=== PATIENT | female | born 1990 | race Caucasian/White ===

== ENCOUNTER 2020-01-13 17:09 | Inpatient (IN) | payer BC, SELFPAY ==
--- NOTE | ~2020-01-13 | XR_ITS ---
EXAMINATION: XR chest 2V DATE: 01/16/2020 11:17 INDICATION: Shortness of breath. TECHNIQUE: Frontal and lateral views of the chest were obtained. COMPARISON: None. FINDINGS: There are airspace opacities in the perihilar regions and lower lung zones. There is a diff use interstitial pattern with a lower lung predominance with sparing of left upper lung zone. There a re small pleural effusions. No pneumothorax. The heart size is obscured. IMPRESSION: 1. Bilateral lung disease with a perihilar and lower lung predominance, consistent with pulmonary marco antonio ma versus pneumonia. 2. Small pleural effusions. Reviewed, dictated and finalized at location A. IMPRESSION: 1. Bilateral lung disease with a perihilar and lower lung predominance, consist ent with pulmonary edema versus pneumonia. 2. Small pleural effusions.
--- NOTE | ~2020-01-13 | US_ITS ---
EXAMINATION: US venous doppler [facility] DATE: 01/16/2020 14:08 INDICATION: Shortness of breath TECHNIQUE: Montes scale images without and with compression and Doppler images of the bilateral lower e xtremity veins were obtained. COMPARISON: None. FINDINGS: The right common femoral vein, profunda femoral vein, femoral vein, popliteal vein, peroneal trunk, p osterior tibial veins, and greater saphenous vein are patent. The left common femoral vein, profunda femoral vein, femoral vein, popliteal vein, peroneal trunk, po sterior tibial veins, and greater saphenous vein are patent. IMPRESSION: 1. Patent bilateral lower extremity veins. No evidence of deep venous thrombosis. Reviewed, dictated and finalized at location A. IMPRESSION: 1. Patent bilateral lower extremity veins. No evidence of deep venous thrombosi s.
--- NOTE | ~2020-01-13 | US_ITS ---
US guidance surgery 01/14/2020 13:41 Indication: Ultrasound guidance during intraoperative procedure Procedure: High-resolution transabdominal ultrasound of the pelvis performed intraoperatively during D&C procedure performed by Dr. Peters. Comparison: No prior studies for comparison. Findings: Uterus is heterogeneous. Endometrium not well delineated during the study. Impression: 1: Ultrasound guidance for D&C procedure performed intraoperatively. Please refer to procedural repor t for details of the examination. Reviewed, dictated and finalized at location A. Impression: 1: Ultrasound guidance for D&C procedure performed intraoperatively. Please ref er to procedural report for details of the examination.
--- NOTE | ~2020-01-13 | XR_ITS ---
XR chest 2V 01/17/2020 08:02 Indication: Redness of breath Procedure: 2 view chest Comparison: 01/16/2020 Findings: Persistent bilateral airspace disease most prominent in the perihilar location and lung bas es. Small pleural effusions. Stable cardiomediastinal silhouette. No pneumothorax. Impression: 1: No significant change to bilateral airspace disease which may represent edema versus pneumonia. 2: Small pleural effusions. Reviewed, dictated and finalized at location A. Impression: 1: No significant change to bilateral airspace disease which may represent lisa a versus pneumonia. 2: Small pleural effusions.
--- NOTE | ~2020-01-13 | CT_ITS ---
EXAMINATION: CTA chest PE protocol DATE: 01/17/2020 11:03 CDT INDICATION: Shortness of breath with hypoxia TECHNIQUE: Computed tomographic angiography (CTA) of the chest was performed with 100 mL Omnipaque-35 0 intravenous contrast. The dose-length product was 402.39 mGy-cm. Maximum intensity projection 3D-re constructions of the aorta and other arteries were constructed by the technologist on a separate work station. Automated exposure control and iterative reconstruction technique were employed. COMPARISON: X-ray dated 01/17/2020 FINDINGS: The study is technically adequate without evidence for pulmonary embolism. There is mediast inal and right hilar lymphadenopathy, likely reactive. Small-moderate bilateral pleural effusions. Ca rdiomegaly. There is bilateral perihilar and lower lobe airspace disease with more focal consolidatio n in the lower lobes. Patchy upper lobe groundglass opacities. No endobronchial lesions. The upper ab domen is unremarkable. IMPRESSION: 1. Patchy bilateral airspace disease more focal in the perihilar and lower lobe locations. This may r epresent a combination of pneumonia, edema and/or atelectasis. 2: Small-moderate bilateral pleural effusions. 3: No evidence for pulmonary embolism. 4: Cardiomegaly. Reviewed, dictated and finalized at location A. IMPRESSION: 1. Patchy bilateral airspace disease more focal in the perihilar and lower lobe locations. This may represent a combination of pneumonia, edema and/or atelect asis. 2: Small-moderate bilateral pleural effusions. 3: No evidence for pulmonary embolism. 4: Cardiomegaly.
--- NOTE | ~2020-01-13 | US_ITS ---
EXAMINATION: US pelvic complete w TV DATE: 01/13/2020 18:28 INDICATION: Vaginal bleeding. TECHNIQUE: Multiple transabdominal and endovaginal sonographic images of the pelvis were obtained. COMPARISON: None. FINDINGS: The uterus measures 9.0 x 4.2 x 5.2 cm. The endometrial complex measures 7 cm 2 mm throughout much of the uterus. There is however mild relative thickening of the endometrial complex at the fundus where it measures up to 8 mm as well as at the lower uterine segment with measures up to 5 mm. Increased c olor Doppler signal throughout the uterus surrounding but not within the endometrial complex. A few s ubcentimeter anechoic nabothian cysts at the cervix. The right ovary measures 3.8 x 2.2 x 2.2 cm. The left ovary measures 2.2 x 1.8 x 1.5 cm. Bilateral anechoic ovarian cysts/follicles measuring up to 2 .4 cm on the right and 1.5 cm on the left. There is normal vascular flow in the ovaries. There is no free fluid in the pelvis. IMPRESSION: 1. Venous of mild relative thickening of the endometrial complex suspicious for retained products of conception with increased vascular flow on color Doppler throughout the surrounding uterus which coul d be seen with endometritis. Reviewed, dictated and finalized at location A. IMPRESSION: 1. Venous of mild relative thickening of the endometrial complex suspicious for retained products of conception with increased vascular flow on color Doppler throughout the surrounding uterus which could be seen with endometritis.
[2020-01-13 17:15] VITALS: BP 129/59; PULSE 123; RESP 26; TEMP 39.5; O2SAT 100
[2020-01-13] MEDS: SODIUM CHLORIDE 0.9% IV 1,000 ML 999 ML IV CONT ×3 (17:29→19:46)
[2020-01-13] MEDS: ONDANSETRON INJ 4 MG/2 ML VIAL IV PUSH (17:30)
[2020-01-13] MEDS: FAMOTIDINE 20 MG/2 ML VIAL IV PUSH (17:30)
[2020-01-13 17:33] VITALS: BP 112/68; PULSE 111; RESP 20; O2SAT 100
[2020-01-13 17:35] LABS: Basophils Percent Auto 0.2 % (0.2-1.2); Eosinophils Absolute Auto 0.1 K/mm3 (0-0.3); Eosinophils Percent Auto 0.9 % (0-4.4); Hematocrit 31.6 % (37.0-47.0); Hemoglobin 10.2 g/dL (12.0-15.0); Immature Granulocyte Absolute 0.02 K/mm3 (0.00-0.031); Immature Granulocyte Percent A 0.2 % (0-0.5); Lymphocytes Absolute Auto 0.48 K/mm3 (0.9-3.2); Lymphocytes Percent Auto 5.5 % (18.3-44.2); Mean Corpuscular HGB Conc 32.3 g/dl (32-36); Mean Corpuscular Hemoglobin 28.3 pg (26-34); Mean Corpuscular Volume 87.5 fl (80-100); Mean Platelet Volume 10.8 fl (7.4-10.4); Monocytes Absolute Auto 0.4 K/mm3 (0.1-0.6); Monocytes Percent Auto 4.7 % (2.6-8.5); Neutrophils Absolute Auto 7.7 K/mm3 (1.3-6.7); Neutrophils Percent Auto 88.5 % (45.5-73.1); Platelet Count Result 221 k/mm3 (150-375); Red Blood Count 3.61 M/mm3 (4.2-5.4); Red Cell Distribution Width 11.9 % (11.5-14.5); White Blood Count 8.7 K/mm3 (4.5-10.0)
[2020-01-13 17:45] LABS: Prothrombin Time 13.1 Seconds (11.1-14.7)
[2020-01-13 17:46] LABS: Partial Thromboplastin Time 25.7 SECONDS (22.3-36.8)
[2020-01-13 17:53] LABS: Lactic Acid Reflex 2.1 mmol/L (0.7-2.1)
[2020-01-13 17:58] LABS: Alanine Aminotransferase 30 U/L (4-35); Albumin Level 4.3 g/dL (3.5-5.1); Alkaline Phosphatase 67 U/L (38-126); Aspartate Amino Transferase 25 U/L (14-36); Bilirubin,Total 0.4 mg/dL (0.2-1.3); Blood Urea Nitrogen 12 mg/dL (7-17); CRP 1.9 mg/dL (<1.0); Calcium 9.2 mg/dL (8.4-10.2); Carbon Dioxide 24 mmol/L (22-30); Chloride 104 mmol/L (98-107); Estimated Glomerular Filt Rate > 60; Glucose 110 mg/dL (65-105); Lipase 79 U/L (23-300); Sodium 138 mmol/L (137-145)
[2020-01-13 18:10] LABS: Potassium 3.6 mmol/L (3.4-5.0)
--- NOTE | 2020-01-13 18:15 | ED.PREGNANCY ---
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 cramping worsened with fever. Denies diarrhea. <JI Tamayo Last Filed: 01/13/20 20:11> Related Data Home medications: Home Medications Medication Instructions Recorded Confirmed No Home Medications 01/13/20 01/13/20 <JI Tamayo Last Filed: 01/13/20 20:11> Allergies/Adverse reactions: Allergies Allergy/AdvReac Type Severity Reaction Status Date / Time No Known Allergies Allergy Verified 01/13/20 17:21 <Raghu Pino PA-C - Last Filed: 01/13/20 20:11> Review of Systems Review of Systems: All systems reviewed & are unremarkable except as noted in HPI and below <Raghu Pino PA-C - Last Filed: 01/13/20 20:11> [facility] Family History Family History: Family History (Updated 01/13/20 @ 22:21 by Chinmay Vazquez RN) Other Unknown family medical history <JI Tamayo Last Filed: 01/13/20 20:11> Social History Social History: Social History Smoking status: Never smoker Alcohol intake: never Substance use: never Gender identity (if verbalized by the patient): Female Spiritual care concerns: No Agree to blood products: Yes <JI Tamayo Last Filed: 01/13/20 20:11> Exam Narrative: Exam Narrative: GENERAL: Ill-appearing, well-nourished, and in no acute distress. HEAD: Normocephalic, atraumatic. EYES: PERRLA and EOMI. ENT: Nares clear, no rhinorrhea or epistaxis. Mucous membranes moist. Oropharynx without tonsillar hypertrophy exudate or other lesions. CHEST: Clear to auscultation. No respiratory distress. No wheezes rales or rhonchi HEART: Tachycardic rate and regular rhythm. No murmur heard. Normal peripheral pulses. ABDOMEN: Soft, tender, nondistended. EXTREMITIES: Normal range of motion. No edema. SKIN: Warm, dry, no rash. NEURO: No focal deficits. Alert and oriented x3. Cranial nerves II through XII grossly intact PSYCH: Normal mood and affect. <Raghu Pino PA-C - Last Filed: 01/13/20 20:11> Course TECHNICIAN ANATOMIC PATHOLOGY/PA Physician Supervision Very sweet woman with recent 14 week miscarrage presents with her for lower abdominal pain. The ultrasound shows retained products of conception. Dr. Calvillo, OB wants to admit her and do a D&C in the morning. She is agreeable with that. Her huband asked permission to go and get her some fast food. That would be fine. She agrees to be NPO after midnight. She denies pain or excessive vaginal bleeding. She has one daughter and now has had 2 miscarrages. Mary Anderson <Mary Anderson MD - Last Filed: 01/13/20 22:36> Consultations Consultation #1: Spoke with Dr. Calvillo who would like the patient to be admitted with hydration Zosyn and Flagyl for antibiotics with planned D&C in the morning n.p.o. at midnight <Raghu Pino PA-C - Last Filed: 01/13/20 20:11> Date: 01/13/20 <Raghu Pino PA-C - Last Filed: 01/13/20 20:11> Time: 20:08 <Raghu Pino PA-C - Last Filed: 01/13/20 20:11> Vital Signs Vital signs: Vital Signs Temperature 103.1 F H 01/13/20 17:15 Pulse Rate 123 H 01/13/20 17:15 Respiratory Rate 26 H 01/13/20 17:15 Blood Pressure 129/59 L 01/13/20 17:15 Pulse Oximetry 100 01/13/20 17:15 Temperature 97.9 F 01/13/20 21:00 Pulse Rate 71 01/13/20 21:00 Respiratory Rate 18 01/13/20 21:00 Blood Pressure 102/66 01/13/20 21:00 Pulse Oximetry 100 01/13/20 21:00 <Raghu Pino PA-C
--- NOTE | 2020-01-13 19:00 | PC.NURSE ---
Assumed care of pt at this time. report from VON Gray
[2020-01-13 19:07] VITALS: BP 98/63; PULSE 99; RESP 24; O2SAT 99
[2020-01-13 19:31] VITALS: BP 100/60; PULSE 107; RESP 22; TEMP 37.2; O2SAT 99
--- NOTE | 2020-01-13 19:34 | PC.NURSE ---
pt attempting to void.
[2020-01-13 19:45] LABS: Add Urine Microscopic? YES; Appearance Urine Clear (Clear); Bacteria Urine Trace /hpf; Bilirubin Urine Negative (Negative); Blood Urine 2+ (Negative); Color Urine Yellow (Yellow); Glucose Urine UA Negative (Negative); Ketones Urine Negative (Negative); Leukocyte Esterase Ur Negative LEU/UL (Negative); Mucus Urine Rare /lpf; Nitrate Urine Negative (Negative); Protein Urine Negative (Negative); Specific Grav Ur 1.026 (1.001-1.035); Squamous Epithelial Cell Urine Few /hpf (Few); Urobilinogen Urine Negative mg/dL (<2.0); WBC Urine 0-3 /hpf
[2020-01-13] MEDS: metroNIDAZOLE 500 MG/ISO 100ML 500 MG/100 ML BAG 100 MG IVPB (19:46)
[2020-01-13 20:30] VITALS: BP 93/56; PULSE 106; RESP 15; O2SAT 99
[2020-01-13 20:33] LABS: Reflex Lactic Acid Yes or No Add Lactic
[2020-01-13] MEDS: LACTATED RINGERS 1,000 ML 125 ML IV CONT (20:53)
[2020-01-13 20:58] VITALS: BMI 35.2
[2020-01-13 21:00] VITALS: BP 102/66; PULSE 71; RESP 18; TEMP 36.6; O2SAT 100
--- NOTE | 2020-01-13 21:00 | ADMGEN ---
This patient, Ela Herr, was admitted to [address] [facility] Surg Room 319-01. Patient/family oriented to hospital policies and general routines including ID bracelet, bed and alarms, visiting hours, pain management, procedures, bathroom and other care routines, personal items, smoking policy, room service/diet, and visiting hours. Valuables list has been completed. Information on how to activate the Rapid Response Team has been discussed. Patient/Family are encouraged to report perceived risks to care and to ask questions if they do not understand what they are told or what they should do.
[2020-01-14] VITALS (13 sets, daily range): BP systolic 93–124; BP diastolic 48–71; PULSE 55–89; RESP 12–18; TEMP 36.4–37.2; O2SAT 95–100
[2020-01-14] MEDS: metroNIDAZOLE 500 MG/ISO 100ML 500 MG/100 ML BAG 100 MG IVPB ×5 (00:56→23:58)
[2020-01-14] MEDS: LACTATED RINGERS 1,000 ML 125 ML IV CONT ×2 (05:08→20:20)
[2020-01-14 05:38] LABS: Basophils Percent Auto 0.3 % (0.2-1.2); Eosinophils Percent Auto 0.6 % (0-4.4); Hematocrit 25.1 % (37.0-47.0); Hemoglobin 8.1 g/dL (12.0-15.0); Immature Granulocyte Absolute 0.02 K/mm3 (0.00-0.031); Immature Granulocyte Percent A 0.3 % (0-0.5); Lymphocytes Absolute Auto 0.42 K/mm3 (0.9-3.2); Lymphocytes Percent Auto 6.5 % (18.3-44.2); Mean Corpuscular HGB Conc 32.3 g/dl (32-36); Mean Corpuscular Hemoglobin 28.1 pg (26-34); Mean Corpuscular Volume 87.2 fl (80-100); Mean Platelet Volume 11.1 fl (7.4-10.4); Monocytes Absolute Auto 0.4 K/mm3 (0.1-0.6); Neutrophils Absolute Auto 5.6 K/mm3 (1.3-6.7); Neutrophils Percent Auto 86.3 % (45.5-73.1); Platelet Count Result 176 k/mm3 (150-375); Red Blood Count 2.88 M/mm3 (4.2-5.4); Red Cell Distribution Width 12.1 % (11.5-14.5); White Blood Count 6.5 K/mm3 (4.5-10.0)
[2020-01-14 06:04] LABS: Blood Urea Nitrogen 9 mg/dL (7-17); Calcium 7.8 mg/dL (8.4-10.2); Carbon Dioxide 23 mmol/L (22-30); Chloride 109 mmol/L (98-107); Estimated CRCL calculation 105 ml/min; Estimated Glomerular Filt Rate > 60; Glucose 109 mg/dL (65-105); Potassium 3.3 mmol/L (3.4-5.0); Sodium 137 mmol/L (137-145)
[2020-01-14] MEDS: FAMOTIDINE 20 MG/2 ML VIAL IV PUSH ×2 (08:50→20:19)
--- NOTE | 2020-01-14 09:14 | HP_ITS ---
DATE OF SERVICE: HISTORY OF PRESENT ILLNESS: The patient is 29 years old, G3, P1-0-1-1, who had a known abnormal as she was seen in the office about a week ago and previously had a fetus with a heartbeat on ultrasound last week and had no fetus or gestational sac seen on ultrasound and she had been bleeding similarly to a period. She has been bleeding like a period or heavier than her normal period for about 2 weeks now, and passing large blood clots. She has been feeling dizzy at times. She denies chest pain or shortness of breath, and she is having cramping. She then came in yesterday after calling and asking for advice due to having a fever of 101 and then it went up to 103, sweats and chills and the heavy bleeding and she was advised to come to the emergency room, which she did and she did have a confirmed fever of 103 when she arrived, so she was admitted overnight for IV antibiotics and observation. Her bleeding has slowed slightly overnight, but is still similar to a period. MEDICAL HISTORY: Negative. CURRENT MEDICINES: vitamin. ALLERGIES: NO KNOWN DRUG ALLERGIES. SURGICAL HISTORY: Negative. SOCIAL HISTORY: Negative for tobacco, alcohol, or drug use. OBSTETRIC HISTORY: She had 1 full-term vaginal delivery and one 1st trimester miscarriage. GYNECOLOGIC HISTORY: Negative for abnormal Pap or STDs. REVIEW OF SYSTEMS: Negative. PHYSICAL EXAMINATION: VITAL SIGNS: Her fever on admission was 103, but she has been afebrile since. Respiratory rate 16 to 18, pulse 70s to 80s. Blood pressure 90s to 100s over 60s. GENERAL: No apparent distress. HEART: Regular rate and rhythm. LUNGS: Clear to auscultation. ABDOMEN: Soft, mildly tender in the suprapubic area. No rebound or guarding. EXTREMITIES: Nontender with no edema. PELVIC EXAM: Deferred. REVIEW OF LABORATORY WORKUP: Her hemoglobin on admission was 10.2 at 5:30 p.m. and at about 5 a.m., her hemoglobin had dropped to 8.1. Her white count is not elevated, her platelets are also normal. Urinalysis is normal other than having blood. Blood type is O positive. Antibody screen negative. IMAGING: Pelvic ultrasound done 4:13 p.m. shows mild relative thickening of the endometrial complex, suspicious for retained products of conception and increased vascular flow, which can be seen with endometritis. ASSESSMENT AND PLAN: Incomplete miscarriage with probable endometritis. The patient agrees to suction D and C today and signed consent after the risks, benefits, complications, and alternatives were discussed. Risks include, but are not limited to, bleeding, blood transfusion, infection, risk of anesthesia, and uterine perforation. We discussed that the risk of uterine perforation is higher in the setting of infection and , so we agreed to do the D and C under ultrasound guidance to decrease that risk. She does express understanding and wishes to proceed with the procedure and does consent to receiving a blood transfusion if deemed to be necessary. We will plan to continue the IV antibiotics for now and likely keep her overnight at least 1 more night for continued observation for the infection. Anju I MT: Sherie
--- NOTE | 2020-01-14 10:40 | PC.NURSE ---
To GI Lab via [employer].
[2020-01-14] MEDS: ONDANSETRON INJ 4 MG/2 ML VIAL IV PUSH ×3 (11:16→20:19)
--- NOTE | 2020-01-14 11:20 | PC.NURSE ---
To OR via bed.
[2020-01-14] MEDS: LACTATED RINGERS 1,000 ML 30 ML IV CONT (11:25)
--- NOTE | 2020-01-14 11:29 | WPDANESEPPF ---
Anes - Initial Pre Proc Eval Procedure: Operation Date: 01/14/20 12:45 Proposed Procedures p Ultrasound Guided Suction Dilation and Curettage - Lesly Peters MD Date/Time: 01/14/20 11:29 Surgeon: Sandi Calvillo MD Pre Op Diagnosis: Retained products of conception Patient Data Age: 29 Gender: F Height: 5 ft 2 in Weight: 87.5 kg Last Vital Signs Temp 36.9 C 01/14/20 06:00 Pulse 78 01/14/20 06:00 Resp 18 01/14/20 06:00 BP 98/62 L 01/14/20 06:00 Pulse Ox 98 01/14/20 06:00 Allergies Allergy/AdvReac Type Severity Reaction Status Date / Time No Known Allergies Allergy Verified 01/13/20 17:21 Home Medications Medication Instructions Recorded Confirmed Type No Home Medications 01/13/20 01/13/20 History Laboratory Tests 01/13/20 01/13/20 01/13/20 17:27 17:27 17:27 WBC 8.7 K/mm3 K/mm3 (4.5-10.0) RBC 3.61 M/mm3 L M/mm3 (4.2-5.4) Hgb 10.2 g/dL L g/dL (12.0-15.0) Hct 31.6 % L % (37.0-47.0) MCV 87.5 fl fl (80-100) MCH 28.3 pg pg (26-34) MCHC 32.3 g/dl g/dl (32-36) RDW 11.9 % % (11.5-14.5) Plt Count 221 k/mm3 k/mm3 (150-375) MPV 10.8 fl H fl (7.4-10.4) Immature Gran % (Auto) 0.2 % % (0-0.5) Neut % (Auto) 88.5 % H % (45.5-73.1) Lymph % (Auto) 5.5 % L % (18.3-44.2) [place] % (Auto) 4.7 % % (2.6-8.5) Eos % (Auto) 0.9 % % (0-4.4) Baso % (Auto) 0.2 % % (0.2-1.2) Lymph # (Auto) 0.48 K/mm3 L K/mm3 (0.9-3.2) [place] # (Auto) 0.4 K/mm3 K/mm3 (0.1-0.6) Eos # (Auto) 0.1 K/mm3 K/mm3 (0-0.3) Baso # (Auto) 0.0 K/mm3 K/mm3 (0.0-0.1) Abs Immat Gran (auto) 0.02 K/mm3 K/mm3 (0.00-0.031) Absolute Neuts (auto) 7.7 K/mm3 H K/mm3 (1.3-6.7) Absolute Nucleated RBC 0.0 K/mm3 K/mm3 (0.0-0.012) Nucleated RBC % 0.0 % % (0.0-0.2) PT 13.1 Seconds Seconds (11.1-14.7) INR 1.0 APTT 25.7 SECONDS SECONDS (22.3-36.8) Sodium 138 mmol/L mmol/L (137-145) Potassium 3.6 mmol/L mmol/L (3.4-5.0) Chloride 104 mmol/L mmol/L (98-107) Carbon Dioxide 24 mmol/L mmol/L (22-30) BUN 12 mg/dL mg/dL (7-17) Creatinine 0.80 mg/dL mg/dL (0.7-1.0) Estim Creat Clear Calc Not Reportable Estimated GFR > 60 (59 - ) Glucose 110 mg/dL H mg/dL (65-105) Lactic Acid Calcium 9.2 mg/dL mg/dL (8.4-10.2) Total Bilirubin 0.4 mg/dL mg/dL (0.2-1.3) AST 25 U/L U/L (14-36) ALT 30 U/L U/L (4-35) Alkaline Phosphatase 67 U/L U/L (38-126) C-Reactive Protein 1.9 mg/dL H mg/dL (<1.0) Total Protein 8.0 g/dL g/dL (6.3-8.2) Albumin 4.3 g/dL g/dL (3.5-5.1) Lipase 79 U/L U/L (23-300) Urine Color Urine Appearance Urine pH Ur Specific [place] Urine Protein Urine Glucose (UA) Urine Ketones Ur Blood (Man) Urine Nitrate Urine Bilirubin Urine Urobilinogen Leukocyte Esterase Rfl Urine RBC Urine WBC Ur Squamous Epith Cells Urine Bacteria Urine Mucus Blood Type Antibody Screen 01/13/20 01/13/20 01/13/20 17:27 17:27 19:37 WBC RBC Hgb Hct MCV MCH MCHC RDW Plt Count MPV Immature Gran % (Auto) Neut % (Auto) Lymph % (Auto) [place] % (Auto) Eos % (Auto) Baso % (Auto) Lymph # (Auto) [place] # (Auto) E
--- NOTE | 2020-01-14 12:39 | WPDHPUPDATE1 ---
History and Physical Update Update Date/Time: 01/14/20 12:39 History and Physical has been reviewed, including an updated exam of the patient. There are NO changes in the patient's condition. Risks, benefits, and alternatives have been discussed and questions answered. Patient agrees to proceed with procedure.
--- NOTE | 2020-01-14 12:50 | PM.OP ---
Procedure Note - Brief Procedure Note - Brief Date of procedure: 01/14/20 Pre-op diagnosis: Retained products of conception same Post-op diagnosis: same Procedure performed: Suction D&C with ultrasound guidance Anesthesia: MAC Surgeon: Lesly Peters MD Estimated blood loss (mL): 50 Drains: No Packing: No Pathology: yes Complications: No immediate complications Condition: stable Disposition: PACU Findings: Small amount POCs/blood clots. Small area thickened endometrium near fundus on ultrasound, thin at end of case
[2020-01-14] MEDS: KETOROLAC 30 MG/ML VIAL (*BKC) IV PUSH (13:20)
--- NOTE | 2020-01-14 14:25 | PC.NURSE ---
Back from OR per bed.
--- NOTE | 2020-01-14 17:04 | OP_ITS ---
DATE OF PROCEDURE: 01/14/2020 PREOPERATIVE DIAGNOSIS: Incomplete miscarriage with retained products of conception. POSTOPERATIVE DIAGNOSIS: Incomplete miscarriage with retained products of conception. PROCEDURE PERFORMED: Suction dilation and curettage under ultrasound guidance. ANESTHESIA: Conscious sedation. ESTIMATED BLOOD LOSS: 50 mL. COMPLICATIONS: None. FINDINGS: Small amounts of products of conception. Thickened endometrial stripe near the fundus on ultrasound and that looked thin at the end of the case. INDICATIONS: This 29-year-old G3, P1-0-1-1 was admitted January 12 p.m. due to heavy bleeding, fever, and probable retained products of conception on ultrasound. She was given IV antibiotics overnight and had continued bleeding. She was recommended to proceed with D and C this morning and did sign consent after the risks, benefits, complications, and alternatives were discussed. DESCRIPTION OF PROCEDURE: For the procedure, she was taken to the operating room where she was sedated and placed in the dorsal lithotomy position. A speculum was placed in the vagina. The anterior lip of the cervix was grasped with a single-tooth tenaculum. The cervix was dilated to allow passage of a #12 curved suction curette, which was placed via ultrasound guidance on the abdomen by an solder technician. A small amount of products of conception was obtained on the 1st pass with a suction curette and then minimal blood was obtained. A sharp curettage was then performed to loosen any remaining tissue and another pass was made with the suction curette with minimal blood and no obvious tissue obtained, and the endometrial stripe looked thin on the ultrasound. The tenaculum was then removed. Both tenaculum sites were bleeding slightly, so pressure was held with ring forceps and Allis clamp until excellent hemostasis was assured and then all instruments were removed from the vagina. She tolerated the procedure well. Sponge, lap, and instrument counts were correct x2, and she was taken to the recovery room in stable condition. D I MT: Sherie
[2020-01-14 19:17] LABS: Hematocrit 24.9 % (37.0-47.0); Hemoglobin 8.2 g/dL (12.0-15.0); Mean Corpuscular HGB Conc 32.9 g/dl (32-36); Mean Corpuscular Hemoglobin 28.7 pg (26-34); Mean Corpuscular Volume 87.1 fl (80-100); Mean Platelet Volume 10.7 fl (7.4-10.4); Platelet Count Result 156 k/mm3 (150-375); Red Blood Count 2.86 M/mm3 (4.2-5.4); Red Cell Distribution Width 12.1 % (11.5-14.5); White Blood Count 4.5 K/mm3 (4.5-10.0)
[2020-01-15 02:00] VITALS: BP 110/59; PULSE 66; RESP 16; TEMP 36.7; O2SAT 98
[2020-01-15 06:00] VITALS: BP 105/53; PULSE 65; RESP 16; TEMP 36.8; O2SAT 92
[2020-01-15] MEDS: metroNIDAZOLE 500 MG/ISO 100ML 500 MG/100 ML BAG 100 MG IVPB ×3 (06:06→17:30)
[2020-01-15 08:00] VITALS: PULSE 68; RESP 18; O2SAT 100
[2020-01-15] MEDS: LACTATED RINGERS 1,000 ML 125 ML IV CONT (08:17)
[2020-01-15] MEDS: FAMOTIDINE 20 MG/2 ML VIAL IV PUSH ×2 (08:17→21:26)
[2020-01-15] MEDS: ONDANSETRON INJ 4 MG/2 ML VIAL IV PUSH (08:19)
--- NOTE | 2020-01-15 08:49 | PM.GYNPNOP ---
CONVENTIONAL MACHINIST - A/P Assessment and plan (1) Retained products of conception: Status: Acute (2) with septicemia: Code(s): O03.87 - Sepsis following complete or unspecified spontaneous Status: Acute Assessment and Plan: 29-year-old female with septic . Retained products conception had been removed. She continues IV antibiotics. She has marked nausea. She be treated with Zofran. Will continue observation. Patient looks pale and moderately ill. Will continue observation in supportive care and antibiotics. Postoperative Procedures: Procedures Operation Date: 01/14/20 12:45 Actual Procedures Side Surgeon p Ultrasound Guided Suction Dilation and Curettage Not Applicable Lesly Peters MD Time Spent With Patient Time: Total time spent is greater than 50% in coordination of care (as documented) at patient's floor/unit and/or counseling patient: Time with patient: less than 15 minutes CONVENTIONAL MACHINIST- PN:Subj Post-Op Subjective Date/time seen: 01/15/20 08:49 patient notes marked nausea, denies fever, chills, improved pain., decreased vaginal bleeding or discharge. Exam Const: General: healthy appearing, comfortable and no acute distress Resp: Auscultation: clear to auscultation bilaterally, no rales, no rhonchi and no wheezes Cardio: Rate: regular rate Heart sounds: no click, no murmurs and no rubs GI: Inspection: non-distended Auscultation: normal bowel sounds Extrem: General: normal to inspection, no pedal edema and no calf tenderness CONVENTIONAL MACHINIST - PN: Obj Data Vital Signs Vital Signs: Vital Signs - 24 hr 01/14/20 11:25 01/14/20 13:31 01/14/20 13:45 Temperature 98.2 F 98.4 F Pulse Rate 71 75 60 Respiratory Rate 16 16 16 Blood Pressure 114/63 101/60 103/64 Pulse Oximetry 100 95 97 01/14/20 14:00 01/14/20 14:13 01/14/20 14:25 Temperature 98.1 F Pulse Rate 55 L 68 62 Respiratory Rate 12 12 16 Blood Pressure 93/65 L 97/64 L 98/54 L Pulse Oximetry 95 96 98 01/14/20 14:40 01/14/20 15:17 01/14/20 16:15 Temperature 97.8 F 98.0 F 97.6 F Pulse Rate 62 58 L 61 Respiratory Rate 16 16 16 Blood Pressure 104/48 L 102/64 124/71 Pulse Oximetry 99 97 100 01/14/20 22:00 01/15/20 02:00 01/15/20 06:00 Temperature 98.8 F 98.0 F 98.3 F Pulse Rate 70 66 65 Respiratory Rate 16 16 16 Blood Pressure 105/57 L 110/59 L 105/53 L Pulse Oximetry 96 98 92 Intake/Output Intake/Output: Intake & Output 01/12/20 01/13/20 01/14/20 01/15/20 23:59 23:59 23:59 23:59 Intake Total 1250 4190 1800 Output Total 400 Balance 1250 3790 1800 Meds/Results Medications: Active Medications Generic Name Dose Route Start Last Admin Trade Name Freq PRN Reason Stop Dose Admin Famotidine 20 mg 01/14/20 09:00 01/15/20 08:17 Pepcid Iv IV PUSH 20 mg Q12HR LOI Administration Lactated Ringer's 1,000 mls @ 125 mls/hr 01/13/20 20:15 01/15/20 08:17 Lr - Lactated Ringers Iv IV CONT 125 mls/hr .Q8H LOI Administration Piperacillin/Tazobactam/Dextrose 3.375 gm in 50 mls @ 100 mls/hr 01/14/20 01:00 01/15/20 06:04 Zosyn 3.375 Gm/D5w 50ml Pm IVPB Infused Q6HR LOI Infusion Metronidazole 500 mg in 100 mls @ 100 mls/hr 01/14/20 01:00 01/15/20 07:05 Flagyl 500 Mg/Iso Soln 100 Ml IVPB Infused Q6HR LOI Infusion Morphine Sulfate 4 mg 01/13/20 20:11 Morphine Sulfate Inj IV PUSH Q2H PRN Pain Rated 7-10 Ondansetron HCl 4 mg 01/13/20 20:11 01/15/20 08:19 Zofran Inj IV PUSH 4 mg Q4H PRN Administration Nausea Radiology Results: ITS Impressions Pelvic/Transvag US 01/13/20 18:38 IMPRESSION: 1. Venous of mild relative thickening of the endometrial complex suspicious for retained products of conception with increased vascular flow on color Doppler throughout the surrounding uterus which could be seen with endometritis. Guidance Ultrasound 01/14/20 14:31 Impression: 1: Ultrasound guidance for D&C procedure performed intraoper
[2020-01-15 09:00] VITALS: BP 101/51; PULSE 58; RESP 18; TEMP 36.7; O2SAT 100
[2020-01-15] MEDS: ONDANSETRON INJ 4 MG/2 ML VIAL 8 MG IV PUSH ×3 (09:03→21:26)
[2020-01-15] MEDS: POTASSIUM CHLORIDE INJ 40 MEQ in LACTATED RINGERS 1,000 ML 125 ML IV CONT ×2 (10:47→22:29)
--- NOTE | 2020-01-15 11:21 | WPDANESPN ---
Anes - Prog Note Post-Op Date/Time: 01/15/20 11:21 Cardiovascular status: normal Respiratory status: normal Airway patency: baseline Mental status: baseline Post-Op hydration status: normal Vital Signs: Last Vital Signs Temp 36.7 C 01/15/20 09:00 Pulse 58 L 01/15/20 09:00 Resp 18 01/15/20 09:00 BP 101/51 L 01/15/20 09:00 Pulse Ox 100 01/15/20 09:00 I/O: Intake & Output 01/14/20 01/15/20 01/15/20 23:59 07:59 15:59 Intake Total 1440 1645 395 Output Total 400 Balance 1040 1645 395 Laboratory Tests 01/14/20 19:04 01/14/20 05:09 01/14/20 19:04 WBC 4.5 RBC 2.86 L Hgb 8.2 L Hct 24.9 L MCV 87.1 MCH 28.7 MCHC 32.9 RDW 12.1 Plt Count 156 MPV 10.7 H Microbiology 01/13/20 17:42 Blood Blood Culture - Preliminary 01/13/20 17:27 Blood Blood Culture - Preliminary Post-procedural complaints: none Patient Feedback: Patient satisfied with anesthetic care.
[2020-01-15 14:00] VITALS: BP 112/52; PULSE 57; RESP 20; TEMP 36.8; O2SAT 97
[2020-01-15] MEDS: PROMETHAZINE HCL 25 MG/ML AMPUL IV PUSH ×2 (18:00→23:59)
[2020-01-15 22:00] VITALS: BP 109/53; PULSE 70; RESP 18; TEMP 36.4; O2SAT 95
[2020-01-16] VITALS (18 sets, daily range): BP systolic 95–133; BP diastolic 49–69; PULSE 55–123; RESP 16–24; TEMP 36.6–38.6; O2SAT 75–98
[2020-01-16] MEDS: metroNIDAZOLE 500 MG/ISO 100ML 500 MG/100 ML BAG 100 MG IVPB ×4 (01:02→19:18)
[2020-01-16] MEDS: PROMETHAZINE HCL 25 MG/ML AMPUL IV PUSH ×4 (06:01→23:53)
--- NOTE | 2020-01-16 08:09 | PM.GYNPNOP ---
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 Check labs this am. She does consent to receive blood if needed. Advance diet as tolerated (2) Retained products of conception: Status: Acute Assessment and Plan: s/p D&C, bleeding is minimal now Postoperative Procedures: Procedures Operation Date: 01/14/20 12:45 Actual Procedures Side Surgeon p Ultrasound Guided Suction Dilation and Curettage Not Applicable Lesly Peters MD Time Spent With Patient Time: Total time spent is greater than 50% in coordination of care (as documented) at patient's floor/unit and/or counseling patient: Time with patient: less than 15 minutes ECDIS N NAVIGATION OPERATOR- PN:Subj Post-Op Subjective Date/time seen: 01/16/20 08:09 Subjective: patient reports nausea and other (She c/o feeling dizzy and short of breath, when she stands and tries to walk, not while resting. No chest pain. Bleeding is minimal since D&C. No urinary or bowel complaints but unable to keep down food or liquids) Review of Systems Review of Systems: All systems reviewed & are unremarkable except as noted in HPI and below Exam Const: General: no acute distress, alert and awake; No acute distress Resp: Auscultation: clear to auscultation bilaterally Cardio: Rate: regular rate Rhythm: regular rhythm GI: Inspection: non-distended Other: soft, nontender, hypoactive bowel sounds Extrem: General: no calf tenderness bilaterally and no edema Psych: Mental Status: mental status grossly normal ECDIS N NAVIGATION OPERATOR - PN: Obj Data Vital Signs Vital Signs: Vital Signs - 24 hr 01/15/20 09:00 01/15/20 14:00 01/15/20 22:00 Temperature 36.7 C 36.8 C 36.4 C Pulse Rate 58 L 57 L 70 Respiratory Rate 18 20 18 Blood Pressure 101/51 L 112/52 L 109/53 L Pulse Oximetry 100 97 95 01/16/20 02:42 01/16/20 03:00 01/16/20 06:00 Temperature 36.8 C 36.7 C Pulse Rate 62 55 L Respiratory Rate 18 24 H 20 Blood Pressure 119/64 133/64 Pulse Oximetry 75 L 94 93 Intake/Output Intake/Output: Intake & Output 01/13/20 01/14/20 01/15/20 01/16/20 23:59 23:59 23:59 23:59 Intake Total 1250 4190 3980 1234 Output Total 400 400 Balance 1250 3790 3980 834 Meds/Results Medications: Active Medications Generic Name Dose Route Start Last Admin Trade Name Freq PRN Reason Stop Dose Admin Enoxaparin Sodium 40 mg 01/16/20 09:00 Lovenox SUB-Q DAILY LOI Famotidine 20 mg 01/14/20 09:00 01/15/20 21:26 Pepcid Iv IV PUSH 20 mg Q12HR LOI Administration Piperacillin/Tazobactam/Dextrose 3.375 gm in 50 mls @ 100 mls/hr 01/14/20 01:00 01/16/20 06:35 Zosyn 3.375 Gm/D5w 50ml Pm IVPB Infused Q6HR LOI Infusion Metronidazole 500 mg in 100 mls @ 100 mls/hr 01/14/20 01:00 01/16/20 06:45 Flagyl 500 Mg/Iso Soln 100 Ml IVPB 100 mls/hr Q6HR LOI Administration Potassium Chloride 40 meq/ 1,020 mls @ 125 mls/hr 01/15/20 10:00 01/16/20 06:09 Lactated Ringer's IV CONT 125 mls/hr .Q8H10M LOI Infusion Morphine Sulfate 4 mg 01/13/20 20:11 Morphine Sulfate Inj IV PUSH Q2H PRN Pain Rated 7-10 Ondansetron HCl 8 mg 01/15/20 17:49 01/15/20 21:26 Zofran Inj IV PUSH 02/14/20 11:46 8 mg Q6H PRN Administration Nausea And Vomiting Promethazine HCl 25 mg 01/15/20 18:00 01/16/20 06:01 Phenergan Inj IV PUSH 25 mg Q6HR LOI Administration Radiology Results: ITS Impressions Pelvic/Transvag US 01/13/20 18:38 IMPRESSION: 1. Venous of mild relative thickening of the endometrial complex suspicious for retained products of conception with increased vascular flow on color Doppler throughout the surrounding uterus which could be seen with endometritis. Guidance Ultrasound 01/14/20 14:31 Impression: 1: Ultrasound guidance for D&C procedure performed intraoperati
[2020-01-16] MEDS: FAMOTIDINE 20 MG/2 ML VIAL IV PUSH ×2 (09:28→20:34)
[2020-01-16] MEDS: ENOXAPARIN 40 MG/0.4 ML SYRINGE SUB-Q (09:28)
[2020-01-16 09:33] LABS: Basophils Absolute Auto 0.1 K/mm3 (0.0-0.1); Basophils Percent Auto 0.5 % (0.2-1.2); Eosinophils Percent Auto 0.2 % (0-4.4); Hematocrit 27.6 % (37.0-47.0); Hemoglobin 8.7 g/dL (12.0-15.0); Immature Granulocyte Absolute 0.05 K/mm3 (0.00-0.031); Immature Granulocyte Percent A 0.5 % (0-0.5); Lymphocytes Absolute Auto 0.99 K/mm3 (0.9-3.2); Lymphocytes Percent Auto 9.1 % (18.3-44.2); Mean Corpuscular HGB Conc 31.5 g/dl (32-36); Mean Corpuscular Hemoglobin 27.7 pg (26-34); Mean Corpuscular Volume 87.9 fl (80-100); Mean Platelet Volume 11.4 fl (7.4-10.4); Monocytes Absolute Auto 0.6 K/mm3 (0.1-0.6); Monocytes Percent Auto 5.9 % (2.6-8.5); Neutrophils Absolute Auto 9.1 K/mm3 (1.3-6.7); Neutrophils Percent Auto 83.8 % (45.5-73.1); Platelet Count Result 227 k/mm3 (150-375); Red Blood Count 3.14 M/mm3 (4.2-5.4); Red Cell Distribution Width 12.1 % (11.5-14.5); White Blood Count 10.9 K/mm3 (4.5-10.0)
[2020-01-16 09:37] LABS: Alanine Aminotransferase 23 U/L (4-35); Albumin Level 3.3 g/dL (3.5-5.1); Alkaline Phosphatase 51 U/L (38-126); Aspartate Amino Transferase 26 U/L (14-36); Bilirubin,Total 0.4 mg/dL (0.2-1.3); Blood Urea Nitrogen 11 mg/dL (7-17); Calcium 8.2 mg/dL (8.4-10.2); Carbon Dioxide 20 mmol/L (22-30); Chloride 109 mmol/L (98-107); Estimated CRCL calculation 83 ml/min; Estimated Glomerular Filt Rate > 60; Glucose 81 mg/dL (65-105); Potassium 3.9 mmol/L (3.4-5.0); Sodium 142 mmol/L (137-145)
[2020-01-16] MEDS: POTASSIUM CHLORIDE INJ 40 MEQ in LACTATED RINGERS 1,000 ML 125 ML IV CONT (09:42)
--- NOTE | 2020-01-16 10:41 | PC.NURSE ---
Contacted office x 2 and left message, paged Dr Peters x 2 and left message. Contacted Dr Calvillo who states that Dr Peters is cement mason. Dr Peters returned call and advised that patient remains on 5L/NC with 02 sat 93%. Advised that patient c/o SOB with activity. New orders received. Dr Johnson notified of consult.
--- NOTE | 2020-01-16 10:49 | PC.NURSE ---
Called Dr. Peters @[phone] regarding patient having a fever of 101.4 and to request an order for Tylenol to help control fever.
[2020-01-16] MEDS: ACETAMINOPHEN 325 MG TABLET 650 MG PO ×2 (10:57→19:19)
--- NOTE | 2020-01-16 11:00 | PC.NURSE ---
Dr Johnson returned call- advised of consult and status report/patient history reported including labs, 02 sats, temp, and 02 requirements with patient c/o SOB. He will see patient.
[2020-01-16 11:19] LABS: D Dimer 4.69 ug/mL (<0.48)
--- NOTE | 2020-01-16 12:20 | PM.IMCN ---
Assessment and Plan Assessment and plan (1) Hypoxia: Code(s): R09.02 - Hypoxemia Status: Acute Assessment and Plan: Patient on room air yesterday but now on 5 L overnight. She was having fevers initially but they have resolved until this morning. Chest x-ray taken this morning was reviewed personally. Chest x-ray shows bilateral diffuse lung disease pulmonary edema versus pneumonia. No clinical evidence to suggest fluid overload. Her fluid balance is inaccurate but does show that she has had considerable amount of IV fluids. This would not explain the recurrent fevers. Patient may have pneumonia occluded been present on admission. Would also consider COVID as well. PE seems less likely despite the positive D-dimer given that we have other etiologies that are more likely. She does have family history of factor 5 Leiden however which must be considered. Will add vancomycin until blood culture results are known. Will add Xopenex MDI. Will check Doppler lower extremities but hold on a CT scan at this time. Will repeat lactic acid. Will check orthostatics given her complaints of dizziness. Blood pressure and renal function are stable so will give her 1 dose of IV Lasix to see if there is improvement with her symptoms. Will stop IV fluids. On repeat visit. Patietn feeling better. Down to 3L. Improved air exchange in the bases. Excellent UOP with the Lasix. ABG showing 7.43/35/35 (but doubt patient that hypoxic given clinical improvement and pulse ox 95% on 3L. LA, Ferritin adn LDH normal so less likely COVID. CRP 4.0. Will hold on repeating Lasix. Orthostatics: lying 99/67, sitting 104/61 and standing 95/49. Recheck CXR in the morning. Check Echo as well. Doppler LE negative. (2) with septicemia: Code(s): O03.87 - Sepsis following complete or unspecified spontaneous Status: Acute Assessment and Plan: Present on admission related to the endometritis and now with bacteremia with sepsis. Fever resolved after D&C but recurred today. Patient had persistent nausea vomiting that also has improved today so far. She is on Phenergan for this. (3) Endometritis: Code(s): N71.9 - Inflammatory disease of uterus, unspecified Status: Acute Assessment and Plan: Related to retained products of conception. As above. (4) Retained products of conception: Status: Acute Assessment and Plan: Postprocedure day 2 from ultrasound-guided D&C. [facility] Data of Consult Consult date: 01/18/20 Requesting Physician: Sandi Calvillo MD Primary Care Provider: PSYCHOLOGICAL TESTS SALES AGENT PHYSICIAN Consult Narrative Narrative: Ela Herr is a 29 year old healthy female G3, P1 here for incomplete miscarriage with endometritis and septicemia. Called to see the patient due to acute onset hypoxia. Patient had evidence of 14 week miscarriage about 2 weeks ago. She developed significant vaginal bleeding including passing large amounts of ?jelly substance? that was darker red. Because of the persistent bleeding she contacted her OBGYN with plans to be seen in the office. One day prior to admission however patient developed fever and chills. She was having occasional cramping in the abdomen. She denies any cough. She denies any shortness of breath. No COVID exposure that she is aware of. Because of the symptoms she presented to the emergency on 01/13/2020 for evaluation. In the emergency room patient was tachycardic of 123 with fever 103.1. White count is normal. CRP 1.9 and lactic acid 2.1. Pelvic ultrasound showing concerns for retained products of conception and probable endometritis. Blood cultures were collected and she was started on IV antibiotics in the form of Flagyl and Zosyn. She is also start IV fluids admitted for further care to the strip machine tender service. On January 13 patient underwent suction D&C under ultrasound guidance. Since the procedure, patient had nausea a
[2020-01-16 13:54] LABS: Base Excess ABG -1.4 mEq/l (+/-2.0); Fractional Inspired Oxygen 40 %; HCO3 ABG 22.6 mEq/l (22.0-26.0); Oxygen Content ABG 8.9 %vol (16.0-22.0); Oxyhemoglobin 66.2 % THb (90.0-100.0); PO2 FiO2 Ratio Arterial Blood 0.88 %; Total Hemoglobin 9.6 g/dL (12.0-18.0); pH ABG 7.428 (7.350-7.450)
[2020-01-16 13:56] LABS: Lactate Dehydrogenase 429 U/L (313-618)
[2020-01-16 13:57] LABS: Device NASAL CANNULA; Modified Allen's Test Pass; Oxygen Saturation ABG 69.4 % (95.0-100.0); Site Drawn RIGHT RADIAL
[2020-01-16] MEDS: FUROSEMIDE INJ 40 MG/4 ML VIAL 20 MG IV PUSH (14:18)
[2020-01-16] MEDS: LEVALBUTEROL HFA (*SP) 15 GM INHALER 2 PUFF INHALATION ×2 (14:40→20:50)
[2020-01-17] VITALS (13 sets, daily range): BP systolic 111–126; BP diastolic 61–75; PULSE 49–78; RESP 18–36; TEMP 36.6–37.7; O2SAT 90–99
--- NOTE | 2020-01-17 | ECHO_ITS ---
Patient Info Name: Ela Herr Age: 29 years : 1990 Gender: Female Ht: 62 in Wt: 193 lbs BSA: 2.00 m2 HR: 53 bpm BP: 111 / 75 mmHg Heart Rhythm: Bradycardia Technical Quality: Good Exam Date: 01/17/2020 2:00 PM Exam Location: [facility] Patient Status: Inpatient Admit Date: 01/14/2020 Staff Ordering Physician: Eulalio Johnson MD Field Cane Scale Clerk: Eddie Mata RDCS Attending Provider: Sandi Calvillo MD Exam Type: CA echo doppler color flow Study Info Indications R06.02 - Shortness of breath Complete two-dimensional, color flow and Doppler transthoracic echocardiogram is performed. History/Risk Factors SOB. Summary 1. Left ventricular chamber dimension is mildly enlarged. 2. Left ventricular systolic function is normal, estimated at 60-65%. 3. The left ventricular diastolic function is normal. 4. E/e' 6 is not elevated. 5. There is trace tricuspid valve regurgitation. 6. No pulmonary hypertension, estimated pulmonary arterial systolic pressure is 27 mmHg. 7. There is trace pulmonic regurgitation. 8. There is trivial pericardial effusion. Left Ventricle E/e' 6 is not elevated. Left ventricular chamber dimension is mildly enlarged. Left ventricular systolic function is normal, estimated at 60-65%. The left ventricular diastolic function is normal. Right Ventricle Right ventricular chamber dimension is normal. Right ventricular systolic function is normal. Left Atria Left atrial chamber dimension is normal. Right Atria Right atrial chamber dimension is normal. Aortic Valve The aortic valve is trileaflet. There is no aortic valve stenosis. There is no aortic valve regurgitation. Pulmonic Valve There is trace pulmonic regurgitation. Mitral Valve There is no mitral valve stenosis. There is no mitral valve regurgitation. Tricuspid Valve There is trace tricuspid valve regurgitation. No pulmonary hypertension, estimated pulmonary arterial systolic pressure is 27 mmHg. Pericardium/Pleural There is trivial pericardial effusion. Inferior Vena Cava Normal inferior vena cava with >50% collapse upon inspiration consistent with normal right atrial pressure, 5 mmHg. Aorta The aortic root size at the sinus of Valsalva is normal. Left Ventricular Outflow Tract Name Value Normal LVOT 2D LVOT Diameter 1.9 cm LVOT Doppler LVOT Peak Gradient 7 mmHg LVOT Mean Gradient 4 mmHg LVOT VTI 24 cm LVOT VTI/AV VTI Ratio 0.8 LVOT Stroke Volume 68 ml LVOT CO 4.3 l/min LVOT CI 2.1 l/min/m2 Mitral Valve Name Value Normal MV Doppler MV Decel [place] 291 cm/s2
[2020-01-17] MEDS: LEVALBUTEROL HFA (*SP) 15 GM INHALER 2 PUFF INHALATION ×4 (01:01→19:44)
[2020-01-17] MEDS: metroNIDAZOLE 500 MG/ISO 100ML 500 MG/100 ML BAG 50 MG IVPB ×3 (01:04→13:05)
[2020-01-17 05:23] LABS: Basophils Percent Auto 0.6 % (0.2-1.2); Eosinophils Absolute Auto 0.2 K/mm3 (0-0.3); Eosinophils Percent Auto 2.7 % (0-4.4); Hematocrit 25.4 % (37.0-47.0); Hemoglobin 8.3 g/dL (12.0-15.0); Immature Granulocyte Absolute 0.02 K/mm3 (0.00-0.031); Immature Granulocyte Percent A 0.3 % (0-0.5); Lymphocytes Absolute Auto 1.03 K/mm3 (0.9-3.2); Lymphocytes Percent Auto 15.2 % (18.3-44.2); Mean Corpuscular HGB Conc 32.7 g/dl (32-36); Mean Corpuscular Hemoglobin 28.1 pg (26-34); Mean Corpuscular Volume 86.1 fl (80-100); Mean Platelet Volume 11.2 fl (7.4-10.4); Monocytes Absolute Auto 0.5 K/mm3 (0.1-0.6); Monocytes Percent Auto 7.4 % (2.6-8.5); Neutrophils Percent Auto 73.8 % (45.5-73.1); Platelet Count Result 206 k/mm3 (150-375); Red Blood Count 2.95 M/mm3 (4.2-5.4); Red Cell Distribution Width 12.3 % (11.5-14.5); White Blood Count 6.8 K/mm3 (4.5-10.0)
[2020-01-17 05:51] LABS: Blood Urea Nitrogen 8 mg/dL (7-17); Calcium 7.7 mg/dL (8.4-10.2); Carbon Dioxide 26 mmol/L (22-30); Chloride 108 mmol/L (98-107); Estimated CRCL calculation 93 ml/min; Estimated Glomerular Filt Rate > 60; Glucose 128 mg/dL (65-105); Potassium 3.6 mmol/L (3.4-5.0); Sodium 136 mmol/L (137-145)
--- NOTE | 2020-01-17 07:44 | PM.GYNPNOP ---
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 Anemia but blood count stable since surgery, and bleeding is minimal. Continue antibiotics. Await final blood culture results (preliminary + X 2) and second set obtained yesterday (2) Hypoxia: Code(s): R09.02 - Hypoxemia Status: Acute Assessment and Plan: Currently on oxygen and being treated for possible pneumonia vs pulmonary edema per hospitalist. Continued management per hospitalist appreciated Postoperative Procedures: Procedures Operation Date: 01/14/20 12:45 Actual Procedures Side Surgeon p Ultrasound Guided Suction Dilation and Curettage Not Applicable Lesly Peters MD Time Spent With Patient Time: Total time spent is greater than 50% in coordination of care (as documented) at patient's floor/unit and/or counseling patient: Time with patient: less than 15 minutes WOOD BLOCK ARTIST- PN:Subj Post-Op Subjective Date/time seen: 01/17/20 07:44 Interval history: She feels less short of breath today on oxygen. No chest pain. occasional dizziness. She has eaten small amounts of solids and drank decent amounts of fluids without nausea or emesis since early yesterday. Bleeding less than menses. No urinary or bowel complaints. No pain Subjective: patient reports feeling better Review of Systems Review of Systems: All systems reviewed & are unremarkable except as noted in HPI and below Exam Const: General: no acute distress, alert and awake Resp: Auscultation: clear to auscultation bilaterally Cardio: Rate: regular rate Rhythm: regular rhythm GI: Inspection: non-distended Other: soft, nontender Neuro: General: oriented to person, oriented to place and oriented to time Extrem: General: no calf tenderness and no edema Psych: Mental Status: mental status grossly normal WOOD BLOCK ARTIST - PN: Obj Data Vital Signs Vital Signs: Vital Signs - 24 hr 01/16/20 08:12 01/16/20 09:59 01/16/20 10:35 Temperature 37.2 C 38.6 C H Pulse Rate 56 L 68 Respiratory Rate 16 17 Blood Pressure 124/66 125/58 L Pulse Oximetry 97 93 98 01/16/20 10:57 01/16/20 11:57 01/16/20 12:17 Temperature 38.6 C H 37.8 C H 37.7 C H Pulse Rate 59 L Respiratory Rate 17 Blood Pressure 112/69 Pulse Oximetry 95 01/16/20 14:41 01/16/20 17:39 01/16/20 17:40 Temperature 38.4 C H Pulse Rate 73 59 L 82 Respiratory Rate 20 16 18 Blood Pressure 99/67 L 104/61 Pulse Oximetry 94 96 97 01/16/20 17:41 01/16/20 19:19 01/16/20 20:15 Temperature 38.4 C H 37.1 C Pulse Rate 123 H Respiratory Rate 22 H Blood Pressure 95/49 L Pulse Oximetry 86 L 01/16/20 20:50 01/16/20 20:54 01/16/20 22:00 Temperature 36.6 C Pulse Rate 75 63 Respiratory Rate 20 18 Blood Pressure 113/51 L Pulse Oximetry 94 96 01/17/20 01:02 01/17/20 06:00 Temperature 36.9 C Pulse Rate 78 58 L Respiratory Rate 20 18 Blood Pressure 111/75 Pulse Oximetry 99 Intake/Output Intake/Output: Intake & Output 01/14/20 01/15/20 01/16/20 01/17/20 23:59 23:59 23:59 23:59 Intake Total 4190 3980 3130 690 Output Total 400 2650 950 Balance 3790 3980 480 -260 Meds/Results Medications: Active Medications Generic Name Dose Route Start Last Admin Trade Name Freq PRN Reason Stop Dose Admin Acetaminophen 650 mg 01/16/20 10:42 01/16/20 19:19 Tylenol Tablet PO 650 mg Q6H PRN Administration Mild Pain (1-3) or Fever Enoxaparin Sodium 40 mg 01/16/20 09:00 01/16/20 09:28 Lovenox SUB-Q 40 mg DAILY LOI Administration Famotidine 20 mg 01/17/20 09:00 Pepcid PO Q12HR LOI Piperacillin/Tazobactam/Dextrose 3.375 gm in 50 mls @ 100 mls/hr 01/14/20 01:00 01/17/20 06:33 Zosyn 3.375 Gm/D5w 50ml Pm IVPB Infused Q6HR LOI Infusion Metronidazole 500 mg in 100 mls @ 100
--- NOTE | 2020-01-17 07:54 | PC.NURSE ---
To Radiology per [wheelchair at [phone] ]
--- NOTE | 2020-01-17 08:21 | PC.NURSE ---
Procedure explained to patient, verbalized understanding. X-Ray procedure completed, patient tolerated well. Returned to room per [ wheelchair, [phone]]
[2020-01-17] MEDS: FAMOTIDINE 20 MG TABLET PO ×2 (08:27→21:08)
[2020-01-17] MEDS: ENOXAPARIN 40 MG/0.4 ML SYRINGE SUB-Q (08:28)
--- NOTE | 2020-01-17 09:11 | PM.IMPN ---
Progress Note: A&P Assessment and Plan (1) Hypoxia: Code(s): R09.02 - Hypoxemia Status: Acute Assessment and Plan: Patient on room air on 01/14 but required up to 5 L overnight. CXR on 01/15 showing bilateral lung disease and effusions. DD positive, CRP 4.0 (up from 1.9). Ferritin and LDH normal. ABG showing 7.43/35/35 but felt to be partially venous gas. Lasix given with 1700ml UOP (and 950 out this morning). Vancomycin added. BCx repeated. Echo pending. Doppler LE negative. Called to the room due to patient with tachypnea. CXR repeated this morning showing no significant change. Will check for COVID and influenza. Will proceed with CTA to exclude PE given her family hx and recent . Lasix x 1 again. (2) with septicemia: Code(s): O03.87 - Sepsis following complete or unspecified spontaneous Status: Acute Assessment and Plan: Present on admission related to the endometritis and now with bacteremia with sepsis. Fever resolved after D&C but fever recurred yesterday. Original blood cultures growing gram positive cocci in anaerobic bottles. Blood cultures repeated. Vancomycin added. (3) Endometritis: Code(s): N71.9 - Inflammatory disease of uterus, unspecified Status: Acute Assessment and Plan: Related to retained products of conception. As above. (4) Retained products of conception: Status: Acute Assessment and Plan: Postprocedure day 3 from ultrasound-guided D&C. Vaginal bleeding minimal. Continue to monitor. (5) Nausea & vomiting: Code(s): R11.2 - Nausea with vomiting, unspecified Status: Acute Assessment and Plan: Patietn with persistent nausea and vomiting after the procedure and placed on scheduled Phenergan. Symptoms improved per patient. Will change phenergan to prn. Could be causing some of the nondescript symptoms. Subjective Date/time seen: 01/17/20 09:11 Interval history: Consulted for hypoxia on a 29yo healthy female who was 2 weeks out from a spontaneous here for with septicemia. Patient slept well overnight and even states better than previous nights. Still feels fatigued. SOB better. No CP. Slight LUNDY today. Denies nausea or vomiting but poor appetite. Ate small amount for breakfast and has green emesis bag next to her. Still has dizziness when up. Slight cough today. Complains of dry mouth and nose. Mild recurrence of the vaginal bleeding. Feels chills coming. She does feel 'strange'. Exam Narrative: Exam Narrative: Gen - NARD but ill appearing HEENT - nc/at, tachy mucous memebranes Neck -neck is supple. No elevation of the JVP. Chest -decreased breath sounds in the bases bilaterally with egophony mid lung michelle. mildly tachypneic. CV - RRR S1/S2. no murmur appreciated. Abd -abdomen is soft. Nontender. Nondistended. Positive bowel sounds. Ext - No pedal edema. Neuro - Alert and oriented. Nonfocal exam. Psych - Nml mood and affect Skin - Warm and dry Objective Data Vital Signs Vital Signs: Vital Signs - 24 hr 01/16/20 09:59 01/16/20 10:35 01/16/20 10:57 Temperature 101.4 F H 101.4 F H Pulse Rate 68 Respiratory Rate 17 Blood Pressure 125/58 L Pulse Oximetry 93 98 01/16/20 11:57 01/16/20 12:17 01/16/20 14:41 Temperature 100.0 F H 100 F H Pulse Rate 59 L 73 Respiratory Rate 17 20 Blood Pressure 112/69 Pulse Oximetry 95 94 01/16/20 17:39 01/16/20 17:40 01/16/20 17:41 Temperature 101.1 F H Pulse Rate 59 L 82 123 H Respiratory Rate 16 18 22 H Blood Pressure 99/67 L 104/61 95/49 L Pulse Oximetry 96 97 86 L 01/16/20 19:19 01/16/20 20:15 01/16/20 20:50 Temperature 101.1 F H 98.8 F Pulse Rate 75 Respiratory Rate 20 Blood Pressure Pulse Oximetry 01/16/20 20:54 01/16/20 22:00 01/17/20 01:02 Temperature 97.8 F Pulse Rate 63 78 Respiratory Rate 18 20 Blood Pressur
[2020-01-17] MEDS: FUROSEMIDE INJ 40 MG/4 ML VIAL 20 MG IV PUSH (10:10)
[2020-01-17 11:42] LABS: Influenza Control Positive
--- NOTE | 2020-01-17 12:46 | ECG_ITS ---
Measurements Intervals [place] Rate: 52 P: 23 [place]: 163 QRS: 0 QRSD: 91 T: 5 QT: 459 QTc: 430 Interpretive Statements SINUS BRADYCARDIA BORDERLINE R WAVE PROGRESSION, ANTERIOR LEADS BORDERLINE T WAVE ABNORMALITY- ANT/INF LEADS BORDERLINE ECG Electronically Signed On 01-17-2020 13:35:00 CDT by Peter Schwab D.O.
[2020-01-17 15:27] LABS: Troponin I 0.024 ng/mL (0.000-0.034)
[2020-01-17] MEDS: ACETAMINOPHEN 325 MG TABLET 650 MG PO (17:01)
[2020-01-17] MEDS: metroNIDAZOLE 500 MG/ISO 100ML 500 MG/100 ML BAG 100 MG IVPB (21:08)
[2020-01-18] VITALS (13 sets, daily range): BP systolic 114–136; BP diastolic 61–82; PULSE 54–84; RESP 18–22; TEMP 36.8–37.4; O2SAT 94–100
[2020-01-18] MEDS: LEVALBUTEROL HFA (*SP) 15 GM INHALER 2 PUFF INHALATION ×4 (00:04→20:10)
[2020-01-18] MEDS: metroNIDAZOLE 500 MG/ISO 100ML 500 MG/100 ML BAG 100 MG IVPB ×4 (01:29→17:30)
[2020-01-18 02:10] LABS: Vancomycin Trough 11.6 ug/mL (10.0-20.0)
[2020-01-18 06:57] LABS: Alanine Aminotransferase 30 U/L (4-35); Albumin Level 3.1 g/dL (3.5-5.1); Alkaline Phosphatase 46 U/L (38-126); Aspartate Amino Transferase 37 U/L (14-36); Bilirubin,Total 0.4 mg/dL (0.2-1.3); Blood Urea Nitrogen 8 mg/dL (7-17); CRP 5.7 mg/dL (<1.0); Calcium 7.7 mg/dL (8.4-10.2); Carbon Dioxide 26 mmol/L (22-30); Chloride 105 mmol/L (98-107); Estimated CRCL calculation 75 ml/min; Estimated Glomerular Filt Rate > 60; Glucose 88 mg/dL (65-105); Magnesium 1.8 mg/dL (1.6-2.3); Phosphorus 4.1 mg/dL (2.5-4.5); Potassium 3.2 mmol/L (3.4-5.0); Sodium 137 mmol/L (137-145)
[2020-01-18 07:16] LABS: Basophils Percent Auto 0.5 % (0.2-1.2); Eosinophils Absolute Auto 0.3 K/mm3 (0-0.3); Eosinophils Percent Auto 3.7 % (0-4.4); Hematocrit 26.7 % (37.0-47.0); Hemoglobin 8.5 g/dL (12.0-15.0); Immature Granulocyte Absolute 0.04 K/mm3 (0.00-0.031); Immature Granulocyte Percent A 0.5 % (0-0.5); Lymphocytes Absolute Auto 1.24 K/mm3 (0.9-3.2); Lymphocytes Percent Auto 16.3 % (18.3-44.2); Mean Corpuscular HGB Conc 31.8 g/dl (32-36); Mean Corpuscular Hemoglobin 27.8 pg (26-34); Mean Corpuscular Volume 87.3 fl (80-100); Mean Platelet Volume 11.4 fl (7.4-10.4); Monocytes Absolute Auto 0.6 K/mm3 (0.1-0.6); Monocytes Percent Auto 7.8 % (2.6-8.5); Neutrophils Absolute Auto 5.4 K/mm3 (1.3-6.7); Neutrophils Percent Auto 71.2 % (45.5-73.1); Platelet Count Result 233 k/mm3 (150-375); Red Blood Count 3.06 M/mm3 (4.2-5.4); Red Cell Distribution Width 12.5 % (11.5-14.5); White Blood Count 7.6 K/mm3 (4.5-10.0)
[2020-01-18] MEDS: POTASSIUM CHLORIDE 20 MEQ PACKET (FOR LIQUID) PO (08:18)
[2020-01-18] MEDS: ONDANSETRON INJ 4 MG/2 ML VIAL 8 MG IV PUSH ×2 (08:18→20:58)
[2020-01-18] MEDS: FAMOTIDINE 20 MG TABLET PO ×2 (08:18→20:58)
[2020-01-18] MEDS: ENOXAPARIN 40 MG/0.4 ML SYRINGE SUB-Q (08:20)
[2020-01-18] MEDS: PROMETHAZINE HCL 25 MG/ML AMPUL IV PUSH ×2 (09:20→17:29)
[2020-01-18] MEDS: ACETAMINOPHEN 325 MG TABLET 650 MG PO (09:20)
--- NOTE | 2020-01-18 10:30 | PM.IMPN ---
Progress Note: A&P Assessment and Plan (1) Fluid overload: Qualifiers: Hypervolemia type: other Qualified Code(s): E87.79 - Other fluid overload Code(s): E87.70 - Fluid overload, unspecified Status: Acute Assessment and Plan: Patient on room air on 01/14 but required up to 5 L overnight. CXR on 01/15 showing bilateral lung disease and effusions. ABG showing 7.43/35/35 but felt to be partially venous gas. IV fluids stopped. Lasix given 01/15 with 2650ml UOP. Echo with EF 65% and nml diastolic function. Doppler LE negative. CTA on 01/16 showing patchy bilateral airspace disease more focal in the perihilar and lower lobe locations consitent with pneumonia, edema and/or atelectasis. Also noted were small-moderate bilateral pleural effusions. Lasix repeated on 01/16 with 4750ml UOP. Patient able to be weaned to room air. Discussed with OB (2) Pneumonia: Qualifiers: Pneumonia type: due to unspecified organism Laterality: bilateral Lung location: lower lobe of lung Qualified Code(s): J18.9 - Pneumonia, unspecified organism Code(s): J18.9 - Pneumonia, unspecified organism Status: Acute Assessment and Plan: Patient on room air on 01/14 but required up to 5 L overnight. CXR on 01/15 showing bilateral lung disease and effusions. DD positive, CRP 4.0 (up from 1.9). Ferritin and LDH normal. ABG showing 7.43/35/35 but felt to be partially venous gas. Vancomycin added. BCx repeated and are no growth. COVID pending. Influenza negative. Continue current abx. (3) with septicemia: Code(s): O03.87 - Sepsis following complete or unspecified spontaneous Status: Acute Assessment and Plan: Present on admission related to the endometritis and now with bacteremia with sepsis. Fever resolved after D&C but fever recurred on 01/15. Blood cultures showing gram positive cocci in anaerobic bottles only. Repeat BCx showing no growth. Currently on Flagyl, Zosyn and Vancomycin. Narrow abx once BCx results have returned. (4) Nausea & vomiting: Qualifiers: Vomiting type: unspecified Vomiting Intractability: non-intractable Qualified Code(s): R11.2 - Nausea with vomiting, unspecified Code(s): R11.2 - Nausea with vomiting, unspecified Status: Acute Assessment and Plan: Patient with persistent nausea and vomiting after the procedure and placed on scheduled Phenergan. Symptoms improved so Phenergan changed to prn. Still with intermittent n/v. Continue to monitor. (5) Endometritis: Code(s): N71.9 - Inflammatory disease of uterus, unspecified Status: Acute Assessment and Plan: Related to retained products of conception. As above. (6) Retained products of conception: Status: Acute Assessment and Plan: Postprocedure day 4 from ultrasound-guided D&C. No further vaginal bleeding today. Continue to monitor. (7) Hypoxia: Code(s): R09.02 - Hypoxemia Status: Acute Assessment and Plan: Related to fluid overload and PNA. Subjective Date/time seen: 01/18/20 10:30 Interval history: Consulted for hypoxia on a 29yo healthy female who was 2 weeks out from a spontaneous admitted on 01/12 for with septicemia. She no longer feels 'strange'. No SOB or cough. No CP. Eating some but still with n/v. No abd pain. Up walking i the room. Despite the persistent n/v, she feels better. She states she feels much better after vomiting. No further vaginal bleeding Exam Narrative: Exam Narrative: Gen - NARD Chest - decreased BS bibasilar o/w clear CV - RRR S1/S2 Abd -Soft. Nontender. Nondistended. Positive bowel sounds. Ext - No pedal edema. Neuro - Alert and oriented. Nonfocal exam. Psych - Nml mood and affect Skin - Warm and dry Objective Data Vital Signs Vital Signs: Vital Signs - 24 hr 01/17/20 12:43 01/17/20 14:00 04
--- NOTE | 2020-01-18 10:41 | PM.GYNPNOP ---
CONCRETE BLOCK MASON - A/P Assessment and plan (1) Endometritis: Code(s): N71.9 - Inflammatory disease of uterus, unspecified Status: Acute (2) Hypoxia: Code(s): R09.02 - Hypoxemia Status: Acute (3) Nausea & vomiting: Code(s): R11.2 - Nausea with vomiting, unspecified Status: Acute Assessment and Plan: POD# 4-5 from D&C for Retained POC's. Possible Septicemia, pneumonia, or covid infection. Await testing results and blood Cx results. Afebrile, Normal WBC, Sats nl on room air now after diuresisi. Cont obs, abx, supportive care. Postoperative Procedures: Procedures Operation Date: 01/14/20 12:45 Actual Procedures Side Surgeon p Ultrasound Guided Suction Dilation and Curettage Not Applicable Lesly Peters MD Time Spent With Patient Time: Total time spent is greater than 50% in coordination of care (as documented) at patient's floor/unit and/or counseling patient: Time with patient: 15 - 25 minutes CONCRETE BLOCK MASON- PN:Subj Post-Op Subjective Date/time seen: 01/18/20 10:41 Denies SOB at this time, Improved nausea, no cp Interval history: Consulted for hypoxia on a 29yo healthy female who was 2 weeks out from a spontaneous admitted on 01/12 for with septicemia. She no longer feels 'strange'. No SOB or cough. No CP. Eating some but still with n/v. No abd pain. Up walking i the room. Despite the persistent n/v, she feels better. She states she feels much better after vomiting. Subjective: patient reports feeling better, patient is tolerating oral intake and patient reports nausea Exam Const: General: healthy appearing, comfortable and no acute distress Cardio: Rate: regular rate Heart sounds: no click, no murmurs and no rubs Other: deferred to medicine GI: Inspection: non-distended GI Palp: No Tenderness to palpation present (GI) and No Palpable mass present Auscultation: normal bowel sounds Extrem: General: normal to inspection, no pedal edema and no calf tenderness CONCRETE BLOCK MASON - PN: Obj Data Vital Signs Vital Signs: Vital Signs - 24 hr 01/17/20 12:43 01/17/20 14:00 01/17/20 16:00 Temperature 98.4 F Pulse Rate 49 L 62 Respiratory Rate 24 H Blood Pressure 111/65 Pulse Oximetry 94 95 01/17/20 16:45 01/17/20 18:00 01/17/20 19:02 Temperature 99.9 F H Pulse Rate Respiratory Rate Blood Pressure Pulse Oximetry 98 90 01/17/20 20:00 01/17/20 20:05 01/17/20 21:10 Temperature 98.4 F Pulse Rate 63 54 L Respiratory Rate 26 H Blood Pressure 112/61 Pulse Oximetry 93 95 01/18/20 00:00 01/18/20 02:00 01/18/20 04:00 Temperature 98.3 F Pulse Rate 54 L 56 L 84 Respiratory Rate 20 Blood Pressure 136/82 Pulse Oximetry 94 01/18/20 06:00 01/18/20 08:37 Temperature 98.6 F Pulse Rate 57 L Respiratory Rate 22 H Blood Pressure 122/74 Pulse Oximetry 95 95 Intake/Output Intake/Output: Intake & Output 01/15/20 01/16/20 01/17/20 01/18/20 23:59 23:59 23:59 23:59 Intake Total 3980 3130 2800 750 Output Total 2650 4750 500 Balance 3980 480 -1950 250 Meds/Results Medications: Active Medications Generic Name Dose Route Start Last Admin Trade Name Freq PRN Reason Stop Dose Admin Acetaminophen 650 mg 01/16/20 10:42 01/18/20 09:20 Tylenol Tablet PO 650 mg Q6H PRN Administration Mild Pain (1-3) or Fever Enoxaparin Sodium 40 mg 01/16/20 09:00 01/18/20 08:20 Lovenox SUB-Q 40 mg DAILY LOI Administration Famotidine 20 mg 01/17/20 09:00 01/18/20 08:18 Pepcid PO 20 mg Q12HR LOI Administration Piperacillin/Tazobactam/Dextrose 3.375 gm in 50 mls @ 100 mls/hr 01/14/20 01:00 01/18/20 06:30 Zosyn 3.375 Gm/D5w 50ml Pm IVPB Infused Q6HR LOI Infusion Metronidazole 500 mg in 100 mls @ 100 mls/hr 01/14/20 01:00 01/18/20 07:30 Flagyl 500 Mg/Iso Soln 100 Ml IVPB Infused Q6HR LOI Infusion Vancomycin HCl 1,250 mg in 250 mls @ 200 mls/hr 01/16/20 14:00 01/18/20 05:00
[2020-01-18 13:29] LABS: SARS-CoV-2 RNA PCR Negative
--- NOTE | 2020-01-18 15:23 | PC.NURSE ---
Received e-mail referral from Labor and delivery nurse on 01-16 that pt was admitted on to another unit of the hospital and had experienced a SAB and had a D&C this past week. Pt has been given a pt Share folder with information about loss and the Share program at [facility]. I spoke with Ela's nurse today and received verbal consent to contact her by phone. Spoke with Ela briefly; Share program and support presented, committing support through the coming weeks and months as pertains to the loss of her baby. Pt receptive. Most importantly now, pt trying to recover physically. She did acknowledge receiving the Share folder, but she has not felt physically able to read any of that as yet. Nurse agreed, that most important now is to rest and recover physically; Pt agreed for phone f/u again.
[2020-01-19] VITALS (10 sets, daily range): BP systolic 103–137; BP diastolic 54–72; PULSE 52–64; RESP 16–20; TEMP 36.3–37.5; O2SAT 94–100
[2020-01-19] MEDS: metroNIDAZOLE 500 MG/ISO 100ML 500 MG/100 ML BAG 100 MG IVPB ×3 (00:30→13:28)
[2020-01-19 06:40] LABS: Blood Urea Nitrogen 17 mg/dL (7-17); Calcium 7.7 mg/dL (8.4-10.2); Carbon Dioxide 26 mmol/L (22-30); Chloride 105 mmol/L (98-107); Estimated CRCL calculation 31 ml/min; Estimated Glomerular Filt Rate 23; Glucose 110 mg/dL (65-105); Potassium 3.2 mmol/L (3.4-5.0); Sodium 138 mmol/L (137-145)
[2020-01-19] MEDS: ENOXAPARIN 40 MG/0.4 ML SYRINGE SUB-Q (08:00)
[2020-01-19] MEDS: PROMETHAZINE HCL 25 MG/ML AMPUL IV PUSH ×2 (08:01→14:06)
[2020-01-19] MEDS: FAMOTIDINE 20 MG TABLET PO ×2 (08:01→20:48)
[2020-01-19] MEDS: LEVALBUTEROL HFA (*SP) 15 GM INHALER 2 PUFF INHALATION ×3 (09:42→19:31)
--- NOTE | 2020-01-19 11:58 | P.PNOB_ITS ---
OB - PN: Subj Subjective Date/time seen: 01/19/20 11:58 the patient reports feeling much better today, she continues to have some nausea and vomiting. She denies any shortness of breath or chest pain. She denies any fevers or chills. She denies any foul- smelling vaginal discharge. She denies any vaginal bleeding of significance. Interval history: Consulted for hypoxia on a 29yo healthy female who was 2 weeks out from a spontaneous admitted on 01/12 for with septicemia. She no longer feels 'strange'. No SOB or cough. No CP. Eating some but still with n/v. No abd pain. Up walking i the room. Despite the persistent n/v, she feels better. She states she feels much better after vomiting. No further vaginal bleeding OB - PN: Obj Data Labs CBC & Chem 7: 01/18/20 06:35 01/19/20 06:06 Labs: Laboratory Results - last 24 hr 01/17/20 01/19/20 10:09 06:06 Sodium 138 Potassium 3.2 L Chloride 105 Carbon Dioxide 26 BUN 17 Creatinine 2.50 H Estim Creat Clear Calc 31 Estimated GFR 23 L Glucose 110 H Calcium 7.7 L SARS-CoV-2 RNA (RT-PCR) Negative OB - PN A/P Assessment and Plan (1) Retained products of conception: Status: Acute (2) with septicemia: Code(s): O03.87 - Sepsis following complete or unspecified spontaneous Status: Acute (3) Endometritis: Code(s): N71.9 - Inflammatory disease of uterus, unspecified Status: Acute Assessment and Plan: This patient is a 29-year-old female with endometritis respiratory symptoms. Symptoms and signs of largely resolved along with her laboratory evaluation. From a gynecologic standpoint she is much improved. She could be treated for the gynecologic issues as an outpatient. I defer to Internal Medicine team for respiratory status and persistent vomiting. Persistent nausea and vomiting could be associated with IV antibiotics Time Spent With Patient Time: Total time spent is greater than 50% in coordination of care (as documented) at patient's floor/unit and/or counseling patient: Exam Const: General: comfortable, no acute distress and alert Resp: Effort & Inspection: normal respiratory effort Auscultation: no crackles, no rales and no rhonchi Cardio: Rate: regular rate Heart sounds: no click, no murmurs and no rubs GI: Inspection: non-distended GI Palp: No Tenderness to palpation present (GI) Auscultation: normal bowel sounds Other: Incision - CDI Extrem: General: normal to inspection, no pedal edema and no calf tenderness
--- NOTE | 2020-01-19 13:19 | PM.IMPN ---
Progress Note: A&P Assessment and Plan (1) MARYSE (acute kidney injury): Code(s): N17.9 - Acute kidney failure, unspecified Status: Acute Assessment and Plan: Patient felt to be fluid overloaded. IV fluids stopped and Lasix 20mg IV given 01/15 with 2650ml UOP. DDimer positive so CTA performed on 01/16 showing patchy bilateral airspace disease with small-moderate bilateral pleural effusions. Lasix 20mg IV repeated on 01/16 with 4750ml UOP. Cr checked almost daily and running 0.8 (avg) until 01/17 when Cr 1.0. No Lasix given that day and discussed with OB about holding off on performing CT Pelvis with contrast. Cr climbed to 2.5 today. Good UOP. BP soft at times but probably her baseline. Suspect MARYSE related to septicemia, Lasix and contrast. Consider related to abx. Will stop the Vanco for now. Add Doxycycline. No answer at [facility] lab. (2) Fluid overload: Qualifiers: Hypervolemia type: other Qualified Code(s): E87.79 - Other fluid overload Code(s): E87.70 - Fluid overload, unspecified Status: Acute Assessment and Plan: Patient on room air on 01/14 but required up to 5 L overnight. CXR on 01/15 showing bilateral lung disease and effusions. IV fluids stopped. Lasix given 01/15 with 2650ml UOP. Echo with EF 65% and nml diastolic function. Doppler LE negative. CTA on 01/16 showing patchy bilateral airspace disease more focal in the perihilar and lower lobe locations consitent with pneumonia, edema and/or atelectasis. Also noted were small-moderate bilateral pleural effusions. Lasix repeated on 01/16 with 4750ml UOP. Patient able to be weaned to room air. Discussed with OB (3) Pneumonia: Qualifiers: Laterality: bilateral Lung location: lower lobe of lung Pneumonia type: due to unspecified organism Qualified Code(s): J18.9 - Pneumonia, unspecified organism Code(s): J18.9 - Pneumonia, unspecified organism Status: Acute Assessment and Plan: Patient on room air on 01/14 but required up to 5 L by the next day. CXR on 01/15 showing bilateral lung disease and effusions. DDimer positive, CRP 4.0 (up from 1.9). Ferritin and LDH normal. ABG showing 7.43/35/35 but felt to be partially venous gas. Vancomycin added. BCx repeated and are no growth. COVID negative. Influenza negative. Will decrease abx as mentioned above due to the MARYSE. Still waiting for the BCx results but suspect this is from the endometritis. (4) with septicemia: Code(s): O03.87 - Sepsis following complete or unspecified spontaneous Status: Acute Assessment and Plan: Present on admission related to the endometritis and now with bacteremia with sepsis. Fever resolved after D&C but fever recurred on 01/15. Blood cultures from 01/12 showing gram positive cocci in anaerobic bottles only with ID still pending. Repeat BCx 01/15 showing no growth. Currently on Flagyl, Zosyn and Vancomycin. Narrow abx as mentioned above. (5) Nausea & vomiting: Qualifiers: Vomiting Intractability: non-intractable Vomiting type: unspecified Qualified Code(s): R11.2 - Nausea with vomiting, unspecified Code(s): R11.2 - Nausea with vomiting, unspecified Status: Acute Assessment and Plan: Patient had persistent nausea and vomiting after the procedure and placed on scheduled Phenergan. Symptoms improved so Phenergan changed to prn a few days ago. Still with intermittent n/v but overall much better. Eating better. Continue to monitor. (6) Endometritis: Code(s): N71.9 - Inflammatory disease of uterus, unspecified Status: Acute Assessment and Plan: Related to retained products of conception. As above. (7) Retained products of conception: Status: Acute Assessment and Plan: Postprocedure day 5 from ultrasound-guided D&C. No further vaginal bleeding today. Continue to monitor. (8) Hypoxia:
[2020-01-19] MEDS: DOXYCYCLINE HYCLATE 100 MG TABLET PO (20:48)
[2020-01-20] VITALS (8 sets, daily range): BP systolic 118–143; BP diastolic 66–81; PULSE 58–77; RESP 16–18; TEMP 37.1–37.5; O2SAT 95–98
[2020-01-20 06:30] LABS: Albumin Level 3.1 g/dL (3.5-5.1); Blood Urea Nitrogen 19 mg/dL (7-17); Calcium 7.6 mg/dL (8.4-10.2); Carbon Dioxide 25 mmol/L (22-30); Chloride 105 mmol/L (98-107); Estimated CRCL calculation 29 ml/min; Estimated Glomerular Filt Rate 21; Glucose 88 mg/dL (65-105); Phosphorus 3.6 mg/dL (2.5-4.5); Potassium 3.2 mmol/L (3.4-5.0); Sodium 139 mmol/L (137-145)
--- NOTE | 2020-01-20 07:46 | PM.GYNPNOP ---
ARC CUTTER - A/P Assessment and plan (1) MARYSE (acute kidney injury): Code(s): N17.9 - Acute kidney failure, unspecified Status: Acute Assessment and Plan: Awaiting labs from today. Management per hospitalist. Postoperative Procedures: Procedures Operation Date: 01/14/20 12:45 Actual Procedures Side Surgeon p Ultrasound Guided Suction Dilation and Curettage Not Applicable Lesly Peters MD Postoperative day: 6 Postoperative status: doing well (postoperatively. Bleeding has stopped. Ready for discharge from vice president financial perspective (awaiting improvement of kidney function)) Time Spent With Patient Time: Total time spent is greater than 50% in coordination of care (as documented) at patient's floor/unit and/or counseling patient: Time with patient: less than 15 minutes ARC CUTTER- PN:Subj Post-Op Subjective Date/time seen: 01/20/20 07:46 Interval history: . She denies chest pain or pelvic pain, SOB, dizziness. She denies nausea and has been tolerating regular diet. Last BM was loose. Occasional vaginal bleeding only when she wipes after using restroom but no heavier bleeding. She reports urinating frequently but no dysuria. Subjective: patient reports feeling better and patient is tolerating oral intake Review of Systems Review of Systems: All systems reviewed & are unremarkable except as noted in HPI and below Exam Const: General: no acute distress, alert and awake Resp: Auscultation: clear to auscultation bilaterally Cardio: Rate: regular rate Rhythm: regular rhythm GI: Inspection: non-distended Other: soft, nontender Neuro: General: oriented to person, oriented to place and oriented to time Extrem: General: no calf tenderness and no edema Psych: Mental Status: mental status grossly normal ARC CUTTER - PN: Obj Data Vital Signs Vital Signs: Vital Signs - 24 hr 01/19/20 08:00 01/19/20 10:00 01/19/20 12:00 Temperature 36.5 C Pulse Rate 64 59 L 62 Respiratory Rate 18 Blood Pressure 126/71 Pulse Oximetry 98 01/19/20 14:00 01/19/20 16:00 01/19/20 18:00 Temperature 36.7 C 36.3 C L Pulse Rate 60 61 64 Respiratory Rate 19 20 Blood Pressure 126/68 137/72 Pulse Oximetry 100 97 01/19/20 20:15 01/20/20 01:59 01/20/20 02:00 Temperature 37.5 C 37.2 C Pulse Rate 62 64 Respiratory Rate 16 16 Blood Pressure 103/54 L 118/66 Pulse Oximetry 95 96 97 01/20/20 06:20 Temperature 37.1 C Pulse Rate 64 Respiratory Rate 18 Blood Pressure 134/75 Pulse Oximetry 97 Intake/Output Intake/Output: Intake & Output 01/17/20 01/18/20 01/19/20 01/20/20 23:59 23:59 23:59 23:59 Intake Total 2800 2290 2180 600 Output Total 4750 500 4050 700 Balance -1950 1790 -1870 -100 Meds/Results Medications: Active Medications Generic Name Dose Route Start Last Admin Trade Name Freq PRN Reason Stop Dose Admin Acetaminophen 650 mg 01/16/20 10:42 01/18/20 09:20 Tylenol Tablet PO 650 mg Q6H PRN Administration Mild Pain (1-3) or Fever Doxycycline Hyclate 100 mg 01/19/20 21:00 01/19/20 20:48 Vibramycin Tab PO 100 mg Q12HR LOI Administration Enoxaparin Sodium 40 mg 01/16/20 09:00 01/19/20 08:00 Lovenox SUB-Q 40 mg DAILY LOI Administration Famotidine 20 mg 01/17/20 09:00 01/19/20 20:48 Pepcid PO 20 mg Q12HR LOI Administration Piperacillin Sod/Tazobactam Sod 2.25 gm in 50 mls @ 100 mls/hr 01/19/20 12:00 01/20/20 05:48 Zosyn 2.25 Gm/D5w 50 Ml IVPB 100 mls/hr Q6H LOI Administration Levalbuterol HCl 2 puff 01/16/20 14:00 01/19/20 19:31 Xopenex Hfa INHALATION 2 puff Q6HRT LOI Administration Ondansetron HCl 8 mg 01/15/20 17:49 01/18/20 20:58 Zofran Inj IV PUSH 02/14/20 11:46 8 mg Q6H PRN Administration Nausea And Vomiting Promethazine HCl 25 mg 01/17/20 06:47 01/19/20 14:06 Phenergan Inj IV PUSH 25 mg Q6HR PRN Administration nausea Radiology Results: ITS Impressions Pelvic/Transvag
[2020-01-20] MEDS: LEVALBUTEROL HFA (*SP) 15 GM INHALER 2 PUFF INHALATION ×5 (08:26→21:00)
[2020-01-20] MEDS: FAMOTIDINE 20 MG TABLET PO ×2 (10:10→21:39)
[2020-01-20] MEDS: ENOXAPARIN 40 MG/0.4 ML SYRINGE SUB-Q (10:10)
[2020-01-20] MEDS: DOXYCYCLINE HYCLATE 100 MG TABLET PO ×2 (10:10→21:39)
--- NOTE | 2020-01-20 16:04 | PM.IMPN ---
Progress Note: A&P Assessment and Plan (1) MARYSE (acute kidney injury): Code(s): N17.9 - Acute kidney failure, unspecified Status: Acute Assessment and Plan: Patient felt to be fluid overloaded with possible PNA causing her hypoxia. IV fluids stopped and Lasix 20mg IV given 01/15 with 2650ml UOP. DDimer positive so CTA performed on 01/16 showing patchy bilateral airspace disease with small-moderate bilateral pleural effusions. Lasix 20mg IV repeated on 01/16 with 4750ml UOP. Cr checked almost daily and running 0.8 (avg) until 01/17 when Cr 1.0 then to 2.5 yesterday. Continues to have good UOP. Cr 2.7 today so appears to be pleateuing. Suspect MARYSE related to septicemia, Lasix and contrast. Consider related to abx. Continue to follow. Okay for discharge once Cr starts trending down. (2) Fluid overload: Qualifiers: Hypervolemia type: other Qualified Code(s): E87.79 - Other fluid overload Code(s): E87.70 - Fluid overload, unspecified Status: Acute Assessment and Plan: Patient on room air on 01/14 but required up to 5 L that night. CXR on 01/15 showing bilateral lung disease and effusions. IV fluids stopped. Lasix given 01/15 with good UOP. Echo with EF 65% and nml diastolic function. Doppler LE negative. CTA on 01/16 showing patchy bilateral airspace disease consistent with pneumonia, edema and/or atelectasis. Also noted were small-moderate bilateral pleural effusions. Lasix repeated on 01/16 with 4750ml UOP. Patient able to be weaned to room air. (3) Pneumonia: Qualifiers: Pneumonia type: due to unspecified organism Laterality: bilateral Lung location: lower lobe of lung Qualified Code(s): J18.9 - Pneumonia, unspecified organism Code(s): J18.9 - Pneumonia, unspecified organism Status: Acute Assessment and Plan: Patient on room air on 01/14 but required up to 5 L by the next day. CXR on 01/15 showing bilateral lung disease and effusions. DDimer positive, CRP 4.0 (up from 1.9). Ferritin and LDH normal. ABG showing 7.43/35/35 but felt to be partially venous gas. Vancomycin added. BCx repeated and are no growth. COVID negative. Influenza negative. Consider aspiration related to her nausea and vomiting after the procedure. Continue abx for now. (4) with septicemia: Code(s): O03.87 - Sepsis following complete or unspecified spontaneous Status: Acute Assessment and Plan: Present on admission related to the endometritis and now with bacteremia with sepsis. Fever resolved after D&C but fever recurred on 01/15. Blood cultures from 01/12 showing peptostreptococcus. Repeat BCx 01/15 showing no growth. Currently on Doxy and Zosyn. (5) Nausea & vomiting: Qualifiers: Vomiting type: unspecified Vomiting Intractability: non-intractable Qualified Code(s): R11.2 - Nausea with vomiting, unspecified Code(s): R11.2 - Nausea with vomiting, unspecified Status: Acute Assessment and Plan: Patient had persistent nausea and vomiting after the procedure and placed on scheduled Phenergan. Symptoms improved so Phenergan changed to prn a few days ago. Sx resolved and eating better. Continue to monitor. (6) Endometritis: Code(s): N71.9 - Inflammatory disease of uterus, unspecified Status: Acute Assessment and Plan: Related to retained products of conception. As above. (7) Retained products of conception: Status: Acute Assessment and Plan: Postprocedure day 6 from ultrasound-guided D&C. No further vaginal bleeding today. Continue to monitor. (8) Hypoxia: Code(s): R09.02 - Hypoxemia Status: Acute Assessment and Plan: Related to fluid overload and PNA. As above. Subjective Date/time seen: 01/20/20 16:04 Interval history: Consulted for hypoxia on a 29yo healthy female who was 2 weeks out from a spontaneous ad
[2020-01-20] MEDS: POTASSIUM CHLORIDE 20 MEQ TABLET PO (18:05)
[2020-01-21 02:00] VITALS: BP 119/67; PULSE 71; RESP 18; TEMP 36.7; O2SAT 95
[2020-01-21] MEDS: LEVALBUTEROL HFA (*SP) 15 GM INHALER 2 PUFF INHALATION ×4 (02:00→19:14)
[2020-01-21 06:00] VITALS: BP 129/79; PULSE 56; RESP 18; TEMP 36.8; O2SAT 97
[2020-01-21 06:46] LABS: Blood Urea Nitrogen 20 mg/dL (7-17); Calcium 7.9 mg/dL (8.4-10.2); Carbon Dioxide 23 mmol/L (22-30); Chloride 106 mmol/L (98-107); Estimated CRCL calculation 30 ml/min; Estimated Glomerular Filt Rate 22; Glucose 94 mg/dL (65-105); Potassium 3.6 mmol/L (3.4-5.0); Sodium 137 mmol/L (137-145)
--- NOTE | 2020-01-21 07:54 | PM.GYNPNOP ---
ASSISTANT BRANCH MANAGER - A/P Assessment and plan (1) with septicemia: Code(s): O03.87 - Sepsis following complete or unspecified spontaneous Status: Acute Assessment and Plan: Postop day #7 s/p suction D&C. No current evidence of endometritis. No need for antibiotics after discharge from ingot weigher perspective but appreciate hospitalist input if any further antibiotics recommended due to h/o septicemia and possible pneumonia vs. pulmonary edema, although all these issues have improved (2) MARYSE (acute kidney injury): Code(s): N17.9 - Acute kidney failure, unspecified Status: Acute Assessment and Plan: Creatinine slightly improved from 2.7 yesterday to 2.6 today. I appreciate hospitalist's continued management and recommendations for this including when she is ready for discharge as well as appropriate follow up once she is discharged. Thank you! Postoperative Procedures: Procedures Operation Date: 01/14/20 12:45 Actual Procedures Side Surgeon p Ultrasound Guided Suction Dilation and Curettage Not Applicable Lesly Peters MD Time Spent With Patient Time: Total time spent is greater than 50% in coordination of care (as documented) at patient's floor/unit and/or counseling patient: Time with patient: less than 15 minutes ASSISTANT BRANCH MANAGER- PN:Subj Post-Op Subjective Date/time seen: 01/21/20 07:54 Interval history: No complaints. She is feeling much better! One loose stool yesterday. Minimal bleeding only with wiping after using restroom. Urinating normally. No CP, SOB, dizziness, nausea Subjective: patient reports feeling better, patient has no complaints, patient desires discharge and patient is tolerating oral intake Review of Systems Review of Systems: All systems reviewed & are unremarkable except as noted in HPI and below Exam Const: General: no acute distress, alert and awake Resp: Auscultation: clear to auscultation bilaterally Cardio: Rate: regular rate Rhythm: regular rhythm GI: Inspection: non-distended Auscultation: normal bowel sounds Other: soft, nontender Neuro: General: oriented to person, oriented to place and oriented to time Extrem: General: no calf tenderness and no edema Psych: Mental Status: mental status grossly normal ASSISTANT BRANCH MANAGER - PN: Obj Data Vital Signs Vital Signs: Vital Signs - 24 hr 01/20/20 08:00 01/20/20 14:00 04/20/20 18:00 Temperature 37.3 C 37.5 C Pulse Rate 64 77 58 L Respiratory Rate 18 16 16 Blood Pressure 131/78 143/81 H Pulse Oximetry 97 97 98 01/20/20 22:00 01/20/20 23:13 01/21/20 02:00 Temperature 37.2 C 36.7 C Pulse Rate 70 70 71 Respiratory Rate 18 18 Blood Pressure 119/67 119/67 Pulse Oximetry 95 95 95 01/21/20 06:00 Temperature 36.8 C Pulse Rate 56 L Respiratory Rate 18 Blood Pressure 129/79 Pulse Oximetry 97 Intake/Output Intake/Output: Intake & Output 01/18/20 01/19/20 01/20/20 01/21/20 23:59 23:59 23:59 23:59 Intake Total 2290 2180 2170 790 Output Total 500 4050 1700 850 Balance 1790 -1870 470 -60 Meds/Results Medications: Active Medications Generic Name Dose Route Start Last Admin Trade Name Freq PRN Reason Stop Dose Admin Acetaminophen 650 mg 01/16/20 10:42 01/18/20 09:20 Tylenol Tablet PO 650 mg Q6H PRN Administration Mild Pain (1-3) or Fever Doxycycline Hyclate 100 mg 01/19/20 21:00 01/20/20 21:39 Vibramycin Tab PO 100 mg Q12HR LOI Administration Enoxaparin Sodium 40 mg 01/16/20 09:00 01/20/20 10:10 Lovenox SUB-Q 40 mg DAILY LOI Administration Famotidine 20 mg 01/22/20 21:00 Pepcid PO Q48H LOI Piperacillin Sod/Tazobactam Sod 2.25 gm in 50 mls @ 100 mls/hr 01/19/20 12:00 01/21/20 07:35 Zosyn 2.25 Gm/D5w 50 Ml IVPB Infused Q6H LOI Infusion Levalbuterol HCl 2 puff 01/16/20 14:00 01/21/20 02:00 Xopenex Hfa INHALATION 2 puff Q6HRT LOI Administration Ondansetron HCl 8 mg 01/15/20 17:49 01/18/20 20:58 Zofran Inj IV PU
[2020-01-21] MEDS: ENOXAPARIN 40 MG/0.4 ML SYRINGE SUB-Q (08:11)
[2020-01-21] MEDS: DOXYCYCLINE HYCLATE 100 MG TABLET PO (08:11)
[2020-01-21 10:00] VITALS: BP 122/82; PULSE 66; RESP 16; TEMP 37.3; O2SAT 99
--- NOTE | 2020-01-21 12:29 | PM.IMPN ---
Progress Note: A&P Assessment and Plan (1) MARYSE (acute kidney injury): Code(s): N17.9 - Acute kidney failure, unspecified Status: Acute Assessment and Plan: Creatinine slightly better today at 2.60. Suspect related to septicemia, Lasix and contrast use. May also be aggravated by antibiotics. Advised patient I feel is safer to keep her here today. Also discussed with Dr. Peters, [employer] SUPERVISOR. Urine output is good. Not on IV fluids. Will stop IV antibiotics. Recheck creatinine tomorrow. Hopeful discharge tomorrow as long as creatinine continues to improve. Patient felt to be fluid overloaded with possible PNA causing her hypoxia. IV fluids stopped and Lasix 20mg IV given 01/15 with 2650ml UOP. DDimer positive so CTA performed on 01/16 showing patchy bilateral airspace disease with small-moderate bilateral pleural effusions. Lasix 20mg IV repeated on 01/16 with 4750ml UOP. Cr checked almost daily and running 0.8 (avg) until 01/17 when Cr 1.0 then to 2.5 yesterday. Continues to have good UOP. Cr 2.7 today so appears to be pleateuing. Suspect MARYSE related to septicemia, Lasix and contrast. Consider related to abx. Continue to follow. Okay for discharge once Cr starts trending down. (2) Fluid overload: Qualifiers: Hypervolemia type: other Qualified Code(s): E87.79 - Other fluid overload Code(s): E87.70 - Fluid overload, unspecified Status: Acute Assessment and Plan: Initial hypoxia may have been result of fluid overload. IV fluids have been stopped. Did receive IV Lasix with good urine output. Creatinine is now elevated as noted. Echocardiogram with EF 65% and normal diastolic function. Lower extremity venous Dopplers negative. CTA chest on 01/17/2020 with patchy bilateral airspace disease consistent with pneumonia, edema and/or atelectasis. Euvolemic at this time. Will continue to monitor while here. (3) Pneumonia: Qualifiers: Laterality: bilateral Lung location: lower lobe of lung Pneumonia type: due to unspecified organism Qualified Code(s): J18.9 - Pneumonia, unspecified organism Code(s): J18.9 - Pneumonia, unspecified organism Status: Acute Assessment and Plan: Imaging as noted above with concern for possible pneumonia. Has been in on antibiotics since her arrival last week. Currently on IV Zosyn and oral doxycycline. Will stop antibiotics today. WBC is normal. On room air. COVID-19 testing negative. Influenza negative. Will continue to monitor. (4) Acute respiratory failure with hypoxia: Code(s): J96.01 - Acute respiratory failure with hypoxia Status: Acute Assessment and Plan: Result of fluid overload and/or pneumonia. Has now weaned to room air. Treatment as noted above. Continue Xopenex HFA. (5) with septicemia: Code(s): O03.87 - Sepsis following complete or unspecified spontaneous Status: Acute Assessment and Plan: Present on admission related to the endometritis and now with bacteremia with sepsis. Initial blood cultures x2 with peptostreptococcus prevotii. Repeat blood cultures remain negative. Stopping antibiotics as noted above. WBC normal as noted above. (6) Nausea & vomiting: Qualifiers: Vomiting Intractability: non-intractable Vomiting type: unspecified Qualified Code(s): R11.2 - Nausea with vomiting, unspecified Code(s): R11.2 - Nausea with vomiting, unspecified Status: Resolved Assessment and Plan: Now resolved. Will monitor. (7) Endometritis: Code(s): N71.9 - Inflammatory disease of uterus, unspecified Status: Acute Assessment and Plan: Related to retained products of conception. Per Gynecology, no additional antibiotics needed at this time. (8) Retained products of conception: Status: Acute Assessment and Plan: Per gynecology. Stable at this time. (9) DVT prophylaxis:
[2020-01-21 14:00] VITALS: BP 141/83; PULSE 78; RESP 16; TEMP 37.2; O2SAT 99
--- NOTE | 2020-01-21 14:01 | PM.OBPRVD ---
OB - Delivery Note Procedure Procedure: Procedures Operation Date: 01/14/20 12:45 Actual Procedures Side Surgeon p Ultrasound Guided Suction Dilation and Curettage Not Applicable Lesly Peters MD events: Pre-Eclampsia and Labor Induction Intrapartal events: None Induction method: AROM, per misoprostol protocol and per pitocin protocol Delivery monitor: external FHT and internal uterine Route of delivery: Episiotomy description: None Laceration description: Perineal - 1st Degree Delivery repair: vicryl Estimated blood loss (mL): 675 Anesthesia type: Epidural Disposition: floor [place] Baby Date of : 01/21/20 Time of : 13:38 Weeks of gestation at delivery: 36 gender: Male Weight (pounds): 5 Weight (ounces): 4 presentation: vertex position: Left Occiput Transverse Placenta delivery description: Spontaneous cord vessel description: 3 Vessels score one minute: 9 score five minutes: 9
--- NOTE | 2020-01-21 14:14 | PCDIET ---
Nutrition LOS Complete: Pt current nutrition is Regular Level 7. Nutrition recommendation: Agree Last recorded weight is 87.5 kg. Bowel Motility: n/a Labs Reviewed:GFR 22, Cr 2.60 Meds Noted:Timothy Fuentesergan Additional Notes: Speaking with pt via phone today due to LOS. Pt states appetite is improving. Average intake over the last several meals is 45%. Pt state N/V have stopped. Edu on menu ordering and foods to improve intake. We will continue to monitor for increasing intake and every five days.
[2020-01-21 18:00] VITALS: BP 129/70; PULSE 69; RESP 16; TEMP 37.3; O2SAT 98
[2020-01-21 22:00] VITALS: BP 117/78; PULSE 70; RESP 18; TEMP 37.1; O2SAT 96
[2020-01-22] MEDS: LEVALBUTEROL HFA (*SP) 15 GM INHALER 2 PUFF INHALATION ×2 (01:29→08:05)
[2020-01-22 02:00] VITALS: BP 124/64; PULSE 65; RESP 18; TEMP 37; O2SAT 96
[2020-01-22 06:00] VITALS: BP 140/79; PULSE 58; RESP 18; TEMP 37.2; O2SAT 98
[2020-01-22 06:38] LABS: Hematocrit 26.8 % (37.0-47.0); Hemoglobin 8.5 g/dL (12.0-15.0); Mean Corpuscular HGB Conc 31.7 g/dl (32-36); Mean Corpuscular Hemoglobin 27.2 pg (26-34); Mean Corpuscular Volume 85.9 fl (80-100); Mean Platelet Volume 11.4 fl (7.4-10.4); Platelet Count Result 293 k/mm3 (150-375); Red Blood Count 3.12 M/mm3 (4.2-5.4); Red Cell Distribution Width 12.5 % (11.5-14.5); White Blood Count 7.4 K/mm3 (4.5-10.0)
[2020-01-22 06:54] LABS: Potassium 3.6 mmol/L (3.4-5.0)
[2020-01-22 06:58] LABS: Albumin Level 3.3 g/dL (3.5-5.1); Blood Urea Nitrogen 19 mg/dL (7-17); Calcium 8.3 mg/dL (8.4-10.2); Carbon Dioxide 24 mmol/L (22-30); Chloride 106 mmol/L (98-107); Estimated CRCL calculation 31 ml/min; Estimated Glomerular Filt Rate 23; Phosphorus 4.1 mg/dL (2.5-4.5); Sodium 139 mmol/L (137-145)
[2020-01-22 07:03] LABS: Glucose 87 mg/dL (65-105)
--- NOTE | 2020-01-22 07:53 | PM.GYNPNOP ---
CASH MANAGEMENT CLERK - A/P Assessment and plan (1) Retained products of conception: Status: Acute (2) with septicemia: Code(s): O03.87 - Sepsis following complete or unspecified spontaneous Status: Acute Assessment and Plan: Resolution of signs and symptoms septic . Patient's concerns are medical at this time. We wait for the medical team to decide if her kidney failure is resultant discharge. She is going to follow up with us next week. She was given precautions and contact information for emergencies. Her vaginal bleeding is minimal. (3) MARYSE (acute kidney injury): Code(s): N17.9 - Acute kidney failure, unspecified Status: Acute (4) Acute respiratory failure with hypoxia: Code(s): J96.01 - Acute respiratory failure with hypoxia Status: Acute Postoperative Procedures: Procedures Operation Date: 01/14/20 12:45 Actual Procedures Side Surgeon p Ultrasound Guided Suction Dilation and Curettage Not Applicable Lesly Peters MD Postoperative day: 8 Postoperative status: doing well Time Spent With Patient Time: Total time spent is greater than 50% in coordination of care (as documented) at patient's floor/unit and/or counseling patient: Time with patient: 15 - 25 minutes CASH MANAGEMENT CLERK- PN:Subj Post-Op Subjective Date/time seen: 01/22/20 07:53 Patient feeling better, minimal vaginal bleeding no nausea, vomiting, fever, chills. Interval history: Date of Service: 01/21/2020. Endometritis and septicemia after incomplete miscarriage. Hospitalist service consulted due to hypoxia. Patient felt to have fluid overload/possible pneumonia. Subsequently has had MARYSE. Feels much better today. Denies chest pain. No shortness of breath or cough. No abdominal pain. No difficulty with urination. No nausea or vomiting. Was hoping to go home. Exam Const: General: healthy appearing, comfortable and no acute distress Resp: Auscultation: clear to auscultation bilaterally, no rales, no rhonchi and no wheezes Cardio: Rate: regular rate Heart sounds: no click, no murmurs and no rubs GI: Inspection: non-distended Auscultation: normal bowel sounds Extrem: General: normal to inspection, no pedal edema and no calf tenderness CASH MANAGEMENT CLERK - PN: Obj Data Vital Signs Vital Signs: Vital Signs - 24 hr 01/21/20 10:00 01/21/20 14:00 01/21/20 18:00 Temperature 99.1 F 98.9 F 99.2 F Pulse Rate 66 78 69 Respiratory Rate 16 16 16 Blood Pressure 122/82 141/83 H 129/70 Pulse Oximetry 99 99 98 01/21/20 22:00 01/22/20 02:00 01/22/20 06:00 Temperature 98.8 F 98.6 F 98.9 F Pulse Rate 70 65 58 L Respiratory Rate 18 18 18 Blood Pressure 117/78 124/64 140/79 Pulse Oximetry 96 96 98 Intake/Output Intake/Output: Intake & Output 01/19/20 01/20/20 01/21/20 01/22/20 23:59 23:59 23:59 23:59 Intake Total 2180 2170 1910 600 Output Total 4050 1700 2050 400 Balance -1870 470 -140 200 Meds/Results Medications: Active Medications Generic Name Dose Route Start Last Admin Trade Name Freq PRN Reason Stop Dose Admin Acetaminophen 650 mg 01/16/20 10:42 01/18/20 09:20 Tylenol Tablet PO 650 mg Q6H PRN Administration Mild Pain (1-3) or Fever Enoxaparin Sodium 40 mg 01/16/20 09:00 01/21/20 08:11 Lovenox SUB-Q 40 mg DAILY OLI Administration Famotidine 20 mg 01/22/20 21:00 Pepcid PO Q48H LOI Levalbuterol HCl 2 puff 01/16/20 14:00 01/22/20 01:29 Xopenex Hfa INHALATION 2 puff Q6HRT LOI Administration Ondansetron HCl 8 mg 01/15/20 17:49 01/18/20 20:58 Zofran Inj IV PUSH 02/14/20 11:46 8 mg Q6H PRN Administration Nausea And Vomiting Promethazine HCl 25 mg 01/17/20 06:47 01/19/20 14:06 Phenergan Inj IV PUSH 25 mg Q6HR PRN Administration nausea Radiology Results: ITS Impressions Pelvic/Transvag US 01/13/20 18:38 IMPRESSION: 1. Venous of mild relative thickening of the endometrial complex suspicious for retain
[2020-01-22] MEDS: ENOXAPARIN 40 MG/0.4 ML SYRINGE SUB-Q (07:59)
[2020-01-22 11:13] VITALS: BP 135/87; PULSE 71; RESP 16; TEMP 36.8; O2SAT 100
--- NOTE | 2020-01-22 11:43 | PM.IMPN ---
Progress Note: A&P Assessment and Plan (1) MARYSE (acute kidney injury): Code(s): N17.9 - Acute kidney failure, unspecified Status: Acute Assessment and Plan: Suspect related to septicemia, Lasix and contrast use. May also be aggravated by antibiotics. Creatinine continues to slowly improve and down to 2.50 today. Urine output remains good. Discussed with patient. Will allow discharge today but will need to recheck renal function in 48 hours. (2) Fluid overload: Qualifiers: Hypervolemia type: other Qualified Code(s): E87.79 - Other fluid overload Code(s): E87.70 - Fluid overload, unspecified Status: Acute Assessment and Plan: Initial hypoxia may have been result of fluid overload. IV fluids have been stopped. Did receive IV Lasix during stay with good urine output. Creatinine now as noted above. Echocardiogram with EF 65% and normal diastolic function. Lower extremity venous Dopplers negative. CTA chest on 01/17/2020 with patchy bilateral airspace disease consistent with pneumonia, edema and/or atelectasis. Remains euvolemic at this time. (3) Pneumonia: Qualifiers: Laterality: bilateral Lung location: lower lobe of lung Pneumonia type: due to unspecified organism Qualified Code(s): J18.9 - Pneumonia, unspecified organism Code(s): J18.9 - Pneumonia, unspecified organism Status: Acute Assessment and Plan: Imaging as noted above with concern for possible pneumonia. Has been in on antibiotics since her arrival last week. Most recently on IV Zosyn and oral doxycycline which were discontinued yesterday. COVID-19 testing negative. Influenza negative. WBC normal. On room air. No need for additional antibiotics. (4) Acute respiratory failure with hypoxia: Code(s): J96.01 - Acute respiratory failure with hypoxia Status: Acute Assessment and Plan: Result of fluid overload and/or pneumonia. Resovled. On room air. Continue Xopenex HFA. (5) with septicemia: Code(s): O03.87 - Sepsis following complete or unspecified spontaneous Status: Acute Assessment and Plan: Present on admission related to the endometritis and now with bacteremia with sepsis. Initial blood cultures x2 with peptostreptococcus prevotii. Repeat blood cultures remain negative. Antibiotics stopped yesterday. WBC remains normal. (6) Nausea & vomiting: Qualifiers: Vomiting Intractability: non-intractable Vomiting type: unspecified Qualified Code(s): R11.2 - Nausea with vomiting, unspecified Code(s): R11.2 - Nausea with vomiting, unspecified Status: Resolved Assessment and Plan: Resolved. Will monitor. (7) Endometritis: Code(s): N71.9 - Inflammatory disease of uterus, unspecified Status: Acute Assessment and Plan: Related to retained products of conception. Per Gynecology, no additional antibiotics needed at this time. (8) Retained products of conception: Status: Acute Assessment and Plan: Per gynecology. Stable at this time. (9) DVT prophylaxis: Code(s): Z29.9 - Encounter for prophylactic measures, unspecified Status: Acute Assessment and Plan: Lovenox. Time Spent With Patient Time with patient: 15 - 25 minutes Subjective Date/time seen: 01/22/20 11:43 Interval history: Date of Service: 01/22/2020. Endometritis and septicemia after incomplete miscarriage. Hospitalist service consulted due to hypoxia. Patient felt to have fluid overload/possible pneumonia. Subsequently has had MARYSE. Continues to feel better. Urinating without difficulty. Has been drinking water. No nausea, vomiting or diarrhea. No headache or dizziness. No chest pain or shortness of breath. Review of Systems Review of Systems: Narrative: Feeling better. Wants to go home. Constitutional: Constitutional: Denies chills and Denies fever(s) ENT:
--- NOTE | 2020-02-15 10:27 | P.DS_ITS ---
DS: Diagnosis Admitting Diagnosis Admitting Diagnosis: Genital tract and pelvic infection following incomplete spo ntaneous Discharge Diagnosis (1) Endometritis: Code(s): N71.9 - Inflammatory disease of uterus, unspecified Status: Acute (2) Retained products of conception: Status: Acute (3) Hypoxia: Code(s): R09.02 - Hypoxemia Status: Acute (4) Nausea & vomiting: Qualifiers: Vomiting Intractability: non-intractable Vomiting type: unspecified Qualified Code(s): R11.2 - Nausea with vomiting, unspecified Code(s): R11.2 - Nausea with vomiting, unspecified Status: Resolved (5) Pneumonia: Qualifiers: Laterality: bilateral Lung location: lower lobe of lung Pneumonia type: due to unspecified organism Qualified Code(s): J18.9 - Pneumonia, unspecified organism Code(s): J18.9 - Pneumonia, unspecified organism Status: Acute DS: Summary Status at Discharge Functional status at discharge: independent ambulation Time Spent with Patient Time attestation: Total time spent providing and/or coordinating discharge services: Time spent: Greater than 30 minutes DS: Data Data Completed and Pending Completed studies during hospitalization: Pending at discharge 01/14/20 13:17 Surgical [PTH] Routine Discharge Plan Discharge Consulting providers: Raghu Pino ; Eulalio Johnson ; Eduard Meza ; Lesly Peters ; Sal Arora V. ; Castro Gutiérrez ; Peter Schwab ; Javier Alvarenga ; Luz Melton Discharging Clinician: Sandi Calvillo Patient Disposition: Home, Self-Care Activity: pelvic rest Diet: regular Discharge Instructions: Dr. Salazar Instructions: 1. You will need to repeat lab to check your kidney function in 48 hours with results to Dr. Conde. 2. Follow-up with Dr. Lindsey Conde in 1 week. 3. Seek care if any change in urination, nausea, vomiting, abdominal pain, headache, dizziness. Patient Instructions: Antibiotic Form, Endometriosis (ED) Stand Alone Forms: General Discharge Information Follow-up/Referrals: LINDSEY CONDE [Other] - 1 Week (Follow-up with Dr. Conde in 1 week.) Sandi Calvillo MD [Physician] - Discharge Medications: No Action No Home Medications RF: 0 Other Ambulatory Orders: Renal Function Panel (Routine) Timeframe: 2 Days Location: Determined by Patient Ordered By: Luz Salazar Date of admission: 01/14/20 22:31 Primary Care Provider: UNKNOWN,DOCTOR Admitting Provider: Sandi Calvillo Discharge Date/Time: 01/22/20 13:05 Attending physician on admission: Sandi Calvillo Condition: Improved
== END 2020-01-22 13:05 | disposition home or self-care (01) | DRG 770 ==
LOC: ANHED 20:11 → ANH3MEDSUR 20:21
PROVIDERS: Emergency Medicine Emergency Medical Services; Hospitalist; Internal Medicine; Obstetrics & Gynecology; Admitting Provider Obstetrics & Gynecology; Emergency Provider Emergency Medicine; Visit Provider Obstetrics & Gynecology
PROC: 10D17ZZ Extraction of Products of Conception, Retained, Via Natural or Artificial Opening (ICD-10-PCS; principal; 2020-01-14 12:45)
DX: O03.37 Sepsis following incomplete spontaneous abortion (principal); A40.8 Other streptococcal sepsis; J18.9 Pneumonia, unspecified organism; J96.01 Acute respiratory failure with hypoxia; N71.0 Acute inflammatory disease of uterus; Z20.828 Contact with and (suspected) exposure to other viral communicable diseases; O03.0 Genital tract and pelvic infection following incomplete spontaneous abortion; B95.4 Other streptococcus as the cause of diseases classified elsewhere; O99.53 Diseases of the respiratory system complicating the puerperium; O03.32 Renal failure following incomplete spontaneous abortion; E87.70 Fluid overload, unspecified; R11.2 Nausea with vomiting, unspecified; O99.215 Obesity complicating the puerperium; E66.9 Obesity, unspecified
CPT/HCPCS: 36415; 36600; 71046; 71275; 76830; 76856; 76998; 80048; 80053; 80069; 80202; 81001; 82728; 82805; 83605; 83615; 83690; 83735; 84100; 84484; 85025; 85027; 85380; 85610; 85730; 86140; 86850; 86900; 86901; 87040; 87076; 87635; 87804; 88305; 93005; 93306; 93970; 94640; 96361; 96365; 96366; 96367; 96375; 96376; 99285; A9270; G0378; J0131; J1650; J1885; J1940; J2250; J2405; J2543; J2550; J2704; J3010; J3370; J3480; J7030; J7120; Q9967; U0003